=== PATIENT | male | born 1965 | race American Indian/Alaskan Native ===

== ENCOUNTER 2020-02-11 09:39 | Emergency (ER) | payer OTHER, BC ==
[~2020-02-11] VITALS: Ht 172.7 cm; Wt 90.7 kg
[~2020-02-11 09:39] MED LIST: CYCL10 PO; DIABETES MEDICINE; Epipen0.3 MG/0.3 IM; GLIM4 PO; HYDACE5325 PO; IBUP600 PO; INSU100I6 SC; INSULANPEN SC; LISI20 PO; NAPR220; Naprosyn500 MG PO; Norco 5-325 Ta1 EACH PO; OXYACE5T PO; PROM25 PO; Percocet 5-3251 EACH PO; RANI150 PO; Tylenol325 MG PO; Valium5 MG PO; Zithromax250 MG PO
[2020-02-11] MEDS ORDERED: POLTRIOPSO LEFTEYE (10:34)
[2020-02-12 05:11] LABS: HCV ANTIBODY <0.1 (0.0-0.9); HIV SCREEN 4TH GENERATION WRFX Non Reactive (Non Reactive)
== END 2020-02-11 10:31 | disposition home or self-care (01) ==
LOC: ER 09:39
PROVIDERS: Physician Assistant
DX: Z77.21 Contact with and (suspected) exposure to potentially hazardous body fluids (principal); H53.142 Visual discomfort, left eye; I10 Essential (primary) hypertension; E11.9 Type 2 diabetes mellitus without complications; F17.220 Nicotine dependence, chewing tobacco, uncomplicated; Z88.0 Allergy status to penicillin; Z88.1 Allergy status to other antibiotic agents; Z79.4 Long term (current) use of insulin; Z79.899 Other long term (current) drug therapy
CPT/HCPCS: 36415; 84460; 86317; 86803; 87389; 99283

== ENCOUNTER → 2020-04-12 | Outpatient (CLI) | payer OTHER, BC ==
[~2020-04-12] MED LIST changes: +POLTRIOPSO LEFTEYE
[2020-04-13 09:08] LABS: HIV SCREEN 4TH GENERATION WRFX Non Reactive (Non Reactive)
== END | disposition home or self-care (01) ==
LOC: LAB SHORT 13:58 → LAB EV 13:58
PROVIDERS: Physician Assistant
DX: Z20.9 Contact with and (suspected) exposure to unspecified communicable disease (principal); H04.302 Unspecified dacryocystitis of left lacrimal passage
CPT/HCPCS: 86803; 87070; 87205; 87389

== ENCOUNTER 2021-07-01 15:41 | Emergency (ER) | payer BC ==
[~2021-07-01] VITALS: Ht 175.3 cm; Wt 108.9 kg
[~2021-07-01 15:41] MED LIST changes: +PIOG15 PO
[2021-07-01] MEDS ORDERED: GLIP5 PO (15:55)
[2021-07-01 16:35] LABS: Calcium, Ionized (POC) 1.08 mmol/L (1.10-1.46); Chloride (POC) 91 mmol/L (98-108); Creatinine (POC) 1.2 mg/dL (0.8-1.3); Glucose (ISTAT POC) 183 mg/dL (70-99); Potassium (POC) 4.2 mmol/L (3.5-5.5); Sodium (POC) 128 mmol/L (135-148); Total CO2 (POC) 24 mmol/L (21-32)
[2021-07-01] MEDS ORDERED: PROM25 PO (17:21)
== END 2021-07-01 17:41 | disposition home or self-care (01) ==
LOC: ER 15:41
PROVIDERS: Physician Assistant
DX: U07.1 COVID-19 (principal); I10 Essential (primary) hypertension; E11.9 Type 2 diabetes mellitus without complications; Z88.0 Allergy status to penicillin; Z88.1 Allergy status to other antibiotic agents
CPT/HCPCS: 36415; 71045; 80047; 85014; 96374; 99284-25; A9270; J1100; J2550; J7030

== ENCOUNTER 2021-07-03 16:24 | Inpatient (IN) | payer BC ==
[~2021-07-03] VITALS: Ht 175.3 cm; Wt 108.9 kg
[~2021-07-03 16:24] MED LIST changes: +GLIP10 PO
[2021-07-03 16:39] LABS: Hemoglobin 14.7 g/dL (13.5-17.5); Mean Corpuscular HGB 31.6 pg (26.0-34.0); Mean Corpuscular HGB Conc 35.9 g/dL (31.5-36.5); Mean Corpuscular Volume 88 fL (80-100); Mean Platelet Volume 9.4 fL (9.1-12.4); Platelet Count 331 K/mm3 (150-400); RDW Standard Deviation 42.5 fL (35.1-46.3); Red Blood Cell Count 4.65 M/mm3 (4.30-5.90); White Blood Cell Count 12.74 K/mm3 (4.00-11.30)
[2021-07-03 16:58] LABS: Alanine Aminotransfer (ALT/SGP 63 U/L (12-78); Albumin, Blood 2.7 g/dL (3.4-5.0); Albumin/Globulin Ratio 0.5 (0.8-1.8); Alk Phos 25 U/L (50-136); Anion Gap 9 mmol/L (6-16); Aspartate Aminotrans (AST/SGOT 51 U/L (12-37); Bilirubin, Total 1.1 mg/dL (0.1-1.0); Blood Urea Nitrogen 23 mg/dL (8-24); Bun/Creatinine Ratio 23.7 (12.0-20.0); CO2, Blood 25 mmol/L (21-32); Calcium, Blood 8.9 mg/dL (8.5-10.1); Chloride, Blood 98 mmol/L (98-108); Creatinine, Blood 0.97 mg/dL (0.60-1.20); Globulin, Blood 5.3 g/dL (2.2-4.0); Glomerular Filtration Rate >60 (60-); Glucose, Blood 249 mg/dL (70-99); Potassium, Blood 4.3 mmol/L (3.5-5.5); Sodium, Blood 132 mmol/L (136-145)
[2021-07-03 17:02] LABS: BAND PERCENT MAN 3 % (0-8); BASOPHILS PERCENT MAN 0 % (0-2); EOSINOPHILS PERCENT MAN 0 % (0-6); LYMPHOCYTES ABSOLUTE MAN 0.38 K/mm3 (0.84-5.20); LYMPHOCYTES PERCENT MAN 3 % (21-46); MONOCYTES ABSOLUTE MAN 0.12 K/mm3 (0.16-1.47); MONOCYTES PERCENT MAN 1 % (4-13); NEUTROPHILS ABSOLUTE MAN 12.23 K/mm3 (1.96-9.15); SEG NEUTROPHILS PERCENT MAN 93 % (41-73); TOTAL CELLS COUNTED 100
--- NOTE | 2021-07-03 21:30 | NUR ---
RECEIVED REPORT FROM NATIONAL ACCOUNTS RECRUITER, ROSA. PT ARRIVED TO RM 324 VIA GURNEY ON NONREBREATHER AND THEN PLACED ON AIRVO BY RESPIRATORY CARE AT 40L WITH FI02 53%. A/O. PLEASANT AND COOPERATIVE WITH CARE. ABLE TO ANSWER APPROPRIATELY. PT ORIENTED TO CALL LT SYSTEM. CALL LIGHT WITHIN REACH.
[2021-07-04 04:57] LABS: BASOPHILS ABSOLUTE AUTO 0.04 K/mm3 (0.00-0.23); BASOPHILS PERCENT AUTO 0 % (0-2); EOSINOPHILS ABSOLUTE AUTO 0.05 K/mm3 (0.00-0.68); EOSINOPHILS PERCENT AUTO 1 % (0-6); Hematocrit 38.4 % (37.0-53.0); Hemoglobin 13.5 g/dL (13.5-17.5); Mean Corpuscular HGB 31.5 pg (26.0-34.0); Mean Corpuscular HGB Conc 35.2 g/dL (31.5-36.5); Mean Corpuscular Volume 90 fL (80-100); Mean Platelet Volume 9.5 fL (9.1-12.4); Platelet Count 299 K/mm3 (150-400); RDW Standard Deviation 42.5 fL (35.1-46.3); Red Blood Cell Count 4.29 M/mm3 (4.30-5.90); White Blood Cell Count 10.31 K/mm3 (4.00-11.30)
[2021-07-04 05:02] LABS: IMMATURE GRAN ABSOLUTE AUTO 0.39 K/mm3 (0.00-0.10); IMMATURE GRAN PERCENT AUTO 4 % (0-1); LYMPHOCYTES ABSOLUTE AUTO 0.55 K/mm3 (0.84-5.20); LYMPHOCYTES PERCENT AUTO 5 % (21-46); MONOCYTES ABSOLUTE AUTO 0.17 K/mm3 (0.16-1.47); MONOCYTES PERCENT AUTO 2 % (4-13); NEUTROPHILS ABSOLUTE AUTO 9.11 K/mm3 (1.96-9.15); NEUTROPHILS PERCENT AUTO 88 % (41-73)
[2021-07-04 05:17] LABS: Alanine Aminotransfer (ALT/SGP 55 U/L (12-78); Albumin, Blood 2.1 g/dL (3.4-5.0); Albumin/Globulin Ratio 0.4 (0.8-1.8); Alk Phos 23 U/L (50-136); Anion Gap 8 mmol/L (6-16); Aspartate Aminotrans (AST/SGOT 36 U/L (12-37); Bilirubin, Total 0.8 mg/dL (0.1-1.0); Blood Urea Nitrogen 29 mg/dL (8-24); Bun/Creatinine Ratio 30.4 (12.0-20.0); CO2, Blood 24 mmol/L (21-32); Chloride, Blood 99 mmol/L (98-108); Creatinine, Blood 0.95 mg/dL (0.60-1.20); Globulin, Blood 5.2 g/dL (2.2-4.0); Glomerular Filtration Rate >60 (60-); Glucose, Blood 340 mg/dL (70-99); Potassium, Blood 4.4 mmol/L (3.5-5.5); Sodium, Blood 131 mmol/L (136-145); Total Protein, Blood 7.3 g/dL (6.4-8.2)
--- NOTE | 2021-07-04 06:03 | NUR ---
SHIFT SUMMARY: ER ADMIT. A/O. RECEIVED FIRST DOSE OF REMDESIVIR IN ER AND DECADRON. CURRENTLY ON 40L AIRVO. SATS 93% PER CONT BIOX. NS AT 100 MLS/HR X ONE BAG. NORMALLY IS INDEPENDENT, WEAK D/T ILLNESS. LOSING SENSE OF TASTE. NO ACUTE CHANGES. WILL CONTINUE TO PROVIDE CARE.
--- NOTE | 2021-07-04 13:52 | NUR ---
I had a wonderful spiritual care visit with Chintan. We spoke of hunting and his spiritual practices. I prayed for his recovery and the strength of his body and spirit. He was very appreciative of the visit.
[2021-07-05 05:50] LABS: Anion Gap 9 mmol/L (6-16); Blood Urea Nitrogen 20 mg/dL (8-24); Bun/Creatinine Ratio 30.2 (12.0-20.0); CO2, Blood 24 mmol/L (21-32); Chloride, Blood 98 mmol/L (98-108); Creatinine, Blood 0.66 mg/dL (0.60-1.20); Glomerular Filtration Rate >60 (60-); Glucose, Blood 230 mg/dL (70-99); Potassium, Blood 4.1 mmol/L (3.5-5.5); Sodium, Blood 131 mmol/L (136-145)
--- NOTE | 2021-07-05 06:08 | NUR ---
SHIFT SUMMARY AOX4. VSS. ON AIRVO, 40L O2 & 53% FIO2. REPORTS SOB c MINIMAL ACTIVITY & TALKING @TIMES. LS DIM c FINE CRACKLES IN BASES. E/U RESP. REPORTS ACHY PAIN ALLOVER BODY, GAVE TYLENOL & PT STATED MINIMAL RELIEF. WEAK. CALL LIGHT IN REACH, ABLE TO MAKE NEEDS KNOWN.
[2021-07-05 09:53] LABS: BASOPHILS ABSOLUTE AUTO 0.05 K/mm3 (0.00-0.23); BASOPHILS PERCENT AUTO 1 % (0-2); EOSINOPHILS ABSOLUTE AUTO 0.02 K/mm3 (0.00-0.68); EOSINOPHILS PERCENT AUTO 0 % (0-6); Hemoglobin 14.2 g/dL (13.5-17.5); IMMATURE GRAN ABSOLUTE AUTO 0.33 K/mm3 (0.00-0.10); IMMATURE GRAN PERCENT AUTO 3 % (0-1); LYMPHOCYTES ABSOLUTE AUTO 0.77 K/mm3 (0.84-5.20); LYMPHOCYTES PERCENT AUTO 7 % (21-46); MONOCYTES ABSOLUTE AUTO 0.17 K/mm3 (0.16-1.47); MONOCYTES PERCENT AUTO 2 % (4-13); Mean Corpuscular HGB Conc 35.5 g/dL (31.5-36.5); Mean Corpuscular Volume 87 fL (80-100); Mean Platelet Volume 9.5 fL (9.1-12.4); NEUTROPHILS ABSOLUTE AUTO 9.53 K/mm3 (1.96-9.15); NEUTROPHILS PERCENT AUTO 88 % (41-73); Platelet Count 416 K/mm3 (150-400); RDW Coefficient Variation 12.6 % (11.7-14.2); Red Blood Cell Count 4.58 M/mm3 (4.30-5.90); White Blood Cell Count 10.87 K/mm3 (4.00-11.30)
--- NOTE | 2021-07-05 10:23 | NUR ---
PATIENT TRANSFERRING TO PCU, REPORT CALLED TO JS PEREZ.
--- NOTE | 2021-07-05 18:14 | NUR ---
SHIFT SUMMARY PT TRANSFER TO PCU AT APPROX 1040. PT ORIENTED TO ROOM AND CALL LIGHT. PT A&Ox4; CALM AND COOPERATIVE WITH CARE. PT RESTING IN BED. USING URINAL IN BED. ENCOURAGED PT TO PRONE, PT STATES HE CANT SLEEP ON STOMACH, ENCOURGED PT TO SLEEP ON SIDE, PT STATES HE WILL TRY. PT DENIES PAIN, CHEST PAIN, NAUSEA AND DIZZINESS. PT SOB WITH EXERTION, SPO2 >90% ON AIRVO, UPON TRANSFER ON 60L AND 83% FIO2, TITRATED TO 60L AND 69% FIO2. PT RECEIVING IV STEROIDS AND REMDESIVIR. ELEVATED BP NOTED. OTHER VSS. NO OTHER ACUTE CHANGES NOTED. WILL CONTINUE TO MONITOR UNTIL REPORT GIVEN TO ONCOMING RN.
[2021-07-06 04:19] LABS: BASOPHILS ABSOLUTE AUTO 0.03 K/mm3 (0.00-0.23); BASOPHILS PERCENT AUTO 0 % (0-2); EOSINOPHILS PERCENT AUTO 0 % (0-6); Hematocrit 40.2 % (37.0-53.0); Hemoglobin 14.1 g/dL (13.5-17.5); IMMATURE GRAN ABSOLUTE AUTO 0.26 K/mm3 (0.00-0.10); IMMATURE GRAN PERCENT AUTO 3 % (0-1); LYMPHOCYTES ABSOLUTE AUTO 0.49 K/mm3 (0.84-5.20); LYMPHOCYTES PERCENT AUTO 5 % (21-46); MONOCYTES ABSOLUTE AUTO 0.28 K/mm3 (0.16-1.47); MONOCYTES PERCENT AUTO 3 % (4-13); Mean Corpuscular HGB Conc 35.1 g/dL (31.5-36.5); Mean Corpuscular Volume 88 fL (80-100); NEUTROPHILS ABSOLUTE AUTO 8.53 K/mm3 (1.96-9.15); NEUTROPHILS PERCENT AUTO 89 % (41-73); Platelet Count 370 K/mm3 (150-400); RDW Coefficient Variation 12.5 % (11.7-14.2); RDW Standard Deviation 40.9 fL (35.1-46.3); Red Blood Cell Count 4.55 M/mm3 (4.30-5.90); White Blood Cell Count 9.59 K/mm3 (4.00-11.30)
[2021-07-06 04:31] LABS: International Normalized Ratio 1.06; Prothrombin Time Results 11.4 Sec (9.7-11.5)
--- NOTE | 2021-07-06 04:40 | NUR ---
SUMMARY PT O2 REQUIREMENTS HAVE REMAINED THE T/O SHIFT. PT SPO2 >92 T/O SHIFT. PT C/O HIP AND BACK PAIN. PROVIDER CALLED AND PT GIVEN ORDERED NORCO W/ RELIEF. PT HAS BEEN ABLE TO SLEEP WELL THIS SHIFT. PT HAD BEEN VOIDING WELL T/O SHIFT. PT TAKING IN PO FLUIDS FREQUENTLY. PT REPORTS HIS TASTE HAS RETURNED. PT STATES HE DOES NOT WANT TO PRONE AND THAT HE WILL TRY ON HIS SIDE. PT CURRENTLY SLEEPING AND IN NO DISTRESS. CALL LIGHT IN REACH.
[2021-07-06 04:44] LABS: Alanine Aminotransfer (ALT/SGP 48 U/L (12-78); Albumin, Blood 2.3 g/dL (3.4-5.0); Albumin/Globulin Ratio 0.5 (0.8-1.8); Alk Phos 25 U/L (50-136); Anion Gap 8 mmol/L (6-16); Aspartate Aminotrans (AST/SGOT 26 U/L (12-37); Bilirubin, Total 0.7 mg/dL (0.1-1.0); Blood Urea Nitrogen 28 mg/dL (8-24); Bun/Creatinine Ratio 35.1 (12.0-20.0); CO2, Blood 26 mmol/L (21-32); Calcium, Blood 8.4 mg/dL (8.5-10.1); Chloride, Blood 96 mmol/L (98-108); Glomerular Filtration Rate >60 (60-); Glucose, Blood 299 mg/dL (70-99); Magnesium, Blood 2.3 mg/dL (1.6-2.4); Sodium, Blood 130 mmol/L (136-145); Total Protein, Blood 7.3 g/dL (6.4-8.2); Troponin I <0.015 ng/mL (0.000-0.040)
--- NOTE | 2021-07-06 13:57 | NUR ---
Spiritual Care visit provided. I provided companionship, listened empathetically and prayed with the patient. He was very thankful for the visit.
--- NOTE | 2021-07-06 18:11 | NUR ---
PT HAS BEEN RESTING WELL IN BED T/O THE DAY, PT HAS BEEN SUPINE FOR MOST OF THE DAY WITH GOOD SPO2 READINGS. VSS. DENIES SOB AND CP WHILE AT REST, WITH ACTIVITY PT HAS SOME DYSPNEA. UNABLE TO PRONE FOR LONG BECUASE OF BACK PAIN. PT DID HAVE A LOOSE STOOL TODAY WHICH HE WAS TREATED WITH IMMODIUM FOR. PT HAS REQUIRED INSULIN COVERAGE T/O THE DAY FOR BLOOD SUGARS IN THE 300s. OTHERWISE NO ACUTE CAHNGES THIS SHIFT
[2021-07-07 04:07] LABS: BASOPHILS ABSOLUTE AUTO 0.03 K/mm3 (0.00-0.23); BASOPHILS PERCENT AUTO 0 % (0-2); EOSINOPHILS PERCENT AUTO 0 % (0-6); Hematocrit 38.1 % (37.0-53.0); Hemoglobin 13.5 g/dL (13.5-17.5); IMMATURE GRAN ABSOLUTE AUTO 0.25 K/mm3 (0.00-0.10); IMMATURE GRAN PERCENT AUTO 3 % (0-1); LYMPHOCYTES PERCENT AUTO 5 % (21-46); MONOCYTES PERCENT AUTO 3 % (4-13); Mean Corpuscular HGB Conc 35.4 g/dL (31.5-36.5); Mean Corpuscular Volume 88 fL (80-100); Mean Platelet Volume 9.5 fL (9.1-12.4); NEUTROPHILS ABSOLUTE AUTO 8.78 K/mm3 (1.96-9.15); NEUTROPHILS PERCENT AUTO 89 % (41-73); Platelet Count 420 K/mm3 (150-400); RDW Coefficient Variation 12.3 % (11.7-14.2); RDW Standard Deviation 39.7 fL (35.1-46.3); Red Blood Cell Count 4.35 M/mm3 (4.30-5.90); White Blood Cell Count 9.86 K/mm3 (4.00-11.30)
[2021-07-07 04:22] LABS: D-Dimer, Quantitative 1.23 mg/L FEU (0.00-0.52); International Normalized Ratio 1.08; Prothrombin Time Results 11.6 Sec (9.7-11.5)
[2021-07-07 04:41] LABS: Alanine Aminotransfer (ALT/SGP 43 U/L (12-78); Albumin, Blood 2.1 g/dL (3.4-5.0); Albumin/Globulin Ratio 0.4 (0.8-1.8); Alk Phos 22 U/L (50-136); Anion Gap 8 mmol/L (6-16); Aspartate Aminotrans (AST/SGOT 27 U/L (12-37); Bilirubin, Total 0.7 mg/dL (0.1-1.0); Blood Urea Nitrogen 31 mg/dL (8-24); CO2, Blood 26 mmol/L (21-32); Calcium, Blood 8.4 mg/dL (8.5-10.1); Chloride, Blood 95 mmol/L (98-108); Creatinine, Blood 0.65 mg/dL (0.60-1.20); Globulin, Blood 4.8 g/dL (2.2-4.0); Glomerular Filtration Rate >60 (60-); Glucose, Blood 308 mg/dL (70-99); Magnesium, Blood 2.2 mg/dL (1.6-2.4); Potassium, Blood 4.9 mmol/L (3.5-5.5); Sodium, Blood 129 mmol/L (136-145); Total Protein, Blood 6.9 g/dL (6.4-8.2); Troponin I <0.015 ng/mL (0.000-0.040)
--- NOTE | 2021-07-07 06:29 | NUR ---
SHIFT SUMMARY PATIENT FOUND TO BE A&OX4 WITH SOME GEN WEAKNESS. NSR ON THE 70'S. ON ARIVO 60L, 80% SATING MID 90'S ALL SHIFT. KEEPING EXERTION TO A MIN. DOES NOT TOLERATE PRONING IT MAKES HIM VERY NAUSEAOUS SO ENCOURAGING SIDE TO SIDE LAYING. VOIDING WELL PER URINAL. TOLERATING ADA DIET. SOME NAUSEA SO TAKING ORAL INTAKE SLOW AND PRN ZOFRAN GIVEN. NO BM THIS SHIFT. NO PAIN OR DISTRESS NOTED UPON ASSESSMENT. UP WITH ONE IN ROOM BUT BEDREST UNTIL OXYGEN DEMANDS IMPROVE. NO ACUTE CONCERNS AT THIS TIME. WILL CONTINUE TO MONITOR UNTIL REPORT GIVEN TO DAYSHIFT RN.
--- NOTE | 2021-07-07 13:58 | NUR ---
PT ABLE TO SIT UP IN CHAIR FROM BREAKFAST UNTIL AFTER LUNCH. PT ABLE TO STAND AND PIVOT WITH SBA FROM BED TO CHAIR AND BACK. PT VERBALIZES UNDERSTANDING OF THE IMPORTANCE OF CHANGING POSITIONS EVERY COUPLE OF HOURS. CALL LIGHT IN REACH.
[2021-07-08 04:48] LABS: BASOPHILS ABSOLUTE AUTO 0.02 K/mm3 (0.00-0.23); BASOPHILS PERCENT AUTO 0 % (0-2); EOSINOPHILS PERCENT AUTO 0 % (0-6); Hematocrit 37.4 % (37.0-53.0); Hemoglobin 13.2 g/dL (13.5-17.5); IMMATURE GRAN ABSOLUTE AUTO 0.26 K/mm3 (0.00-0.10); IMMATURE GRAN PERCENT AUTO 3 % (0-1); LYMPHOCYTES ABSOLUTE AUTO 0.39 K/mm3 (0.84-5.20); LYMPHOCYTES PERCENT AUTO 4 % (21-46); MONOCYTES ABSOLUTE AUTO 0.26 K/mm3 (0.16-1.47); MONOCYTES PERCENT AUTO 3 % (4-13); Mean Corpuscular HGB 30.8 pg (26.0-34.0); Mean Corpuscular HGB Conc 35.3 g/dL (31.5-36.5); Mean Corpuscular Volume 87 fL (80-100); Mean Platelet Volume 10.2 fL (9.1-12.4); NEUTROPHILS PERCENT AUTO 91 % (41-73); Platelet Count 418 K/mm3 (150-400); RDW Coefficient Variation 12.4 % (11.7-14.2); RDW Standard Deviation 39.8 fL (35.1-46.3); Red Blood Cell Count 4.29 M/mm3 (4.30-5.90); White Blood Cell Count 10.03 K/mm3 (4.00-11.30)
--- NOTE | 2021-07-08 05:03 | NUR ---
SHIFT SUMMARY NO ACUTE CHANGES. PT A&OX4. PLEASANT. SP02>92% ON 60L HUMIDIFIED HIGH ARM[place] NC, 85%. PT HAD MOMENTS OF APNEA DURING SLEEP, WOULD DESAT TO 83%, THEN RECOVER QUICKLY. TELEMETRY READS NSR, HR 70'S. PT USED URINAL TO VOID THIS SHIFT. NO BM. PT DENIED PAIN. CALL LIGHT IN REACH. WILL GIVE REPORT TO ONCOMING NURSE.
[2021-07-08 05:16] LABS: Alanine Aminotransfer (ALT/SGP 48 U/L (12-78); Albumin, Blood 2.1 g/dL (3.4-5.0); Albumin/Globulin Ratio 0.5 (0.8-1.8); Alk Phos 32 U/L (50-136); Anion Gap 6 mmol/L (6-16); Aspartate Aminotrans (AST/SGOT 45 U/L (12-37); Bilirubin, Total 0.7 mg/dL (0.1-1.0); Blood Urea Nitrogen 33 mg/dL (8-24); Bun/Creatinine Ratio 51.7 (12.0-20.0); CO2, Blood 28 mmol/L (21-32); Calcium, Blood 8.3 mg/dL (8.5-10.1); Chloride, Blood 97 mmol/L (98-108); Creatinine, Blood 0.64 mg/dL (0.60-1.20); Globulin, Blood 4.5 g/dL (2.2-4.0); Glomerular Filtration Rate >60 (60-); Glucose, Blood 318 mg/dL (70-99); Magnesium, Blood 2.3 mg/dL (1.6-2.4); Potassium, Blood 5.2 mmol/L (3.5-5.5); Sodium, Blood 131 mmol/L (136-145); Total Protein, Blood 6.6 g/dL (6.4-8.2)
[2021-07-08 05:18] LABS: International Normalized Ratio 1.06; Prothrombin Time Results 11.4 Sec (9.7-11.5)
--- NOTE | 2021-07-08 11:55 | NUR ---
Patient is lying in bed and alert. Patient tells me about the events that led to his hospitalization and his progress since being admitted. He tells me that his motivation to be well is hunting the [place] that he has been watching. He tells me his mix of believes and Congregational and the inner peace he has in the midst of the medical issues. I provide therapeutic listening, companionship and prayer. Patient responds well and shows signs of an elevated mood. I will continue to remain available to patient and family.
--- NOTE | 2021-07-08 13:30 | NUR ---
HR TACHY/PHYSICIAN NOTIFIED PHYSICIAN NOTIFIED PT HAD ONE MIN RUN OF VTACH AND IN AND OUT OF SINUS TACH AND AFIB. ORDERS FOR PT TO HAVE 5MG IV METOPROLOL PUSH Q 15 UNTIL HR UNDER 100. PT RN NOTIFIED.
--- NOTE | 2021-07-08 18:49 | NUR ---
SHIFT SUMMARY: PT CONTINUES A&OX4, COOPERATIVE WITH CARE. APPROX 1330, PT WITH APPROX 1 MIN RUN OF VTACH THEN CONVERTED TO AFIB W/RVR. DR VILLALOBOSTRATE NOTIFIED. HR SUSTAINING 130s-160s, LOPRESSOR IVPs GIVEN IN ATTEMPT TO DECREASE HR, EVENTUALLY CARDIZEM GTT INITIATED AT 15 MG/HR, HR APPROX 120s-130s AT THIS TIME, PT CONTINUES ASYMPTOMATIC. NO ACUTE CHANGES TO PT RESPIRATORY STATUS. PT USING URINAL IN BED, USING CALL LIGHT APPROPRIATELY, REMDESIVIR INFUSION COMPLETE. WILL CONTINUE TO MONITOR AND TREAT ACCORDINGLY UNTIL CHANGE OF SHIFT.
--- NOTE | 2021-07-08 22:19 | NUR ---
ASSUMED CARE OF PATIENT AT APPROXIMATELY 1910 FROM MINGO Yuen RN. PATIENT ALERT AND ORIENTED X4; SBA TO CHAIR OR WHEN UP PER REPORT. PATIENT REPORTS CHRONIC PAIN IN HIP THAT IS CHRONIC BUT REFUSES INTERVENTIONS; REPORTS PAIN MEDICATION "KNOCKS HIM OUT". PATIENT VERBALIZED HE IS SUPPOSE TO BE GOING HUNTING TOMORROW AND IT IS HIS BIRTHDAY AND HOPED TO BE OUT. PATIENT DENIES NUMBESS, TINGLING, DIZZINESS OR NAUSEA. PATIENT REPORTS HE IS UNABLE TO PRONE BECAUSE OF HIS CULTURE; BUT ABLE TO LAY ON HIS SIDE IF NEEDED. AFIB ON TELE WITH AN AVERAGE OF 120'S; AIRVO AT 60L 90% FIO2; CARDIZEM AT 15ML/ HR. PG ROD.
--- NOTE | 2021-07-08 22:54 | NUR ---
HEART RATE 150-170S WHILE USING URINAL IN BED
--- NOTE | 2021-07-08 23:00 | NUR ---
CARDIZEM TITRATED DOWN TO 10ML/HR PER ORDER
--- NOTE | 2021-07-08 23:22 | NUR ---
CARDIZEM TITIRATED DOWN PER ORDER TO 5ML/HR FOR HEART RATE AVERAGING 106
[2021-07-09 08:20] LABS: BASOPHILS ABSOLUTE AUTO 0.03 K/mm3 (0.00-0.23); BASOPHILS PERCENT AUTO 0 % (0-2); EOSINOPHILS PERCENT AUTO 0 % (0-6); Hematocrit 40.5 % (37.0-53.0); Hemoglobin 14.3 g/dL (13.5-17.5); IMMATURE GRAN ABSOLUTE AUTO 0.33 K/mm3 (0.00-0.10); IMMATURE GRAN PERCENT AUTO 3 % (0-1); LYMPHOCYTES ABSOLUTE AUTO 0.36 K/mm3 (0.84-5.20); LYMPHOCYTES PERCENT AUTO 3 % (21-46); MONOCYTES ABSOLUTE AUTO 0.25 K/mm3 (0.16-1.47); MONOCYTES PERCENT AUTO 2 % (4-13); Mean Corpuscular HGB 31.2 pg (26.0-34.0); Mean Corpuscular HGB Conc 35.3 g/dL (31.5-36.5); Mean Corpuscular Volume 88 fL (80-100); Mean Platelet Volume 10.3 fL (9.1-12.4); NEUTROPHILS ABSOLUTE AUTO 12.34 K/mm3 (1.96-9.15); NEUTROPHILS PERCENT AUTO 93 % (41-73); Platelet Count 470 K/mm3 (150-400); RDW Coefficient Variation 12.4 % (11.7-14.2); RDW Standard Deviation 39.7 fL (35.1-46.3); Red Blood Cell Count 4.58 M/mm3 (4.30-5.90); White Blood Cell Count 13.31 K/mm3 (4.00-11.30)
[2021-07-09 08:36] LABS: Anion Gap 6 mmol/L (6-16); Blood Urea Nitrogen 29 mg/dL (8-24); Bun/Creatinine Ratio 42.3 (12.0-20.0); CO2, Blood 28 mmol/L (21-32); Calcium, Blood 8.3 mg/dL (8.5-10.1); Chloride, Blood 99 mmol/L (98-108); Creatinine, Blood 0.69 mg/dL (0.60-1.20); Glomerular Filtration Rate >60 (60-); Glucose, Blood 303 mg/dL (70-99); Potassium, Blood 4.8 mmol/L (3.5-5.5); Sodium, Blood 133 mmol/L (136-145)
--- NOTE | 2021-07-09 10:43 | NUR ---
NOTIFIED BY Xanic THAT PT WAS IN ACCELERATED JUNCTIONAL RHYTHM. CALLED AND WAS GIVEN TELEPHONE ORDER TO GIVE METOPROLOL TARTRATED 50MG NOW.
--- NOTE | 2021-07-09 18:41 | NUR ---
PT A&OX4 ABLE TO MAKE NEEDS KNOWN. ON AIRVO 55L AT 80% O2 SATURATIONS IN MID 90'S DURING SHIFT. PT STARTED SHIFT IN NORMAL SINUS BUT CONVERTED TO JUNCTIONAL. NOTIFED DR, METOPROLOL PO ORDERED. AFTERNOON CBG WAS 366, NEW INSULIN ORDERS ENTERED IN TO [facility] BY . PT UP IN CHAIR FOR MOST OF SHIFT, TRANSFERED WITH ONE PERSON STANDBY. PT TOLERATED MOVEMENT OKAY, SATS CAME BACK UP AFTER A FEW MINUTES. PT CURENLTY RESTING IN BED WILL CONTINUE TO MONITOR UNTIL SHIFT CHANGE.
--- NOTE | 2021-07-09 21:32 | NUR ---
BERNADETTE 387; CALLED DR. AVINA; ORDERS FOR ADDITIONAL 4 UNITS OF HUMALOG TONIGHT.
--- NOTE | 2021-07-09 22:35 | NUR ---
ASSUMED CARE OF PATIENT AT APPROXIMATELY 1910 FROM MINGO Yuen RN. PATIENT ALERT AND ORIENTED X4; SBA TO CHAIR OR WHEN UP PER REPORT. PATIENT DENIES PAIN, NUMBESS, TINGLING, DIZZINESS OR NAUSEA. NSR ON TELE; OXYGEN SATURATION ABOVE 90% ON AIRVO AT 55L 73% FIO2. USES URINAL IN BED; REPORTS DIARRHEA BUT NOT SEEN; REQUESTED IMMODIUM. CGB HIGH; SEE PREVIOUS NOTE.
[2021-07-10 06:35] LABS: BASOPHILS ABSOLUTE AUTO 0.04 K/mm3 (0.00-0.23); BASOPHILS PERCENT AUTO 0 % (0-2); EOSINOPHILS PERCENT AUTO 0 % (0-6); Hematocrit 36.6 % (37.0-53.0); Hemoglobin 13.5 g/dL (13.5-17.5); IMMATURE GRAN ABSOLUTE AUTO 0.84 K/mm3 (0.00-0.10); IMMATURE GRAN PERCENT AUTO 5 % (0-1); LYMPHOCYTES ABSOLUTE AUTO 0.44 K/mm3 (0.84-5.20); LYMPHOCYTES PERCENT AUTO 3 % (21-46); MONOCYTES ABSOLUTE AUTO 0.43 K/mm3 (0.16-1.47); MONOCYTES PERCENT AUTO 3 % (4-13); Mean Corpuscular HGB 32.1 pg (26.0-34.0); Mean Corpuscular HGB Conc 36.9 g/dL (31.5-36.5); Mean Corpuscular Volume 87 fL (80-100); Mean Platelet Volume 9.5 fL (9.1-12.4); NEUTROPHILS ABSOLUTE AUTO 14.46 K/mm3 (1.96-9.15); NEUTROPHILS PERCENT AUTO 89 % (41-73); Platelet Count 431 K/mm3 (150-400); RDW Coefficient Variation 12.3 % (11.7-14.2); RDW Standard Deviation 39.4 fL (35.1-46.3); White Blood Cell Count 16.21 K/mm3 (4.00-11.30)
--- NOTE | 2021-07-10 06:51 | NUR ---
PATIENT SLEPT ABOUT FOUR HOURS LAST NIGHT. VSS. NO OTHER ACUTE CHANGES TO REPORT.
[2021-07-10 06:53] LABS: Alanine Aminotransfer (ALT/SGP 51 U/L (12-78); Albumin, Blood 2.2 g/dL (3.4-5.0); Albumin/Globulin Ratio 0.5 (0.8-1.8); Alk Phos 33 U/L (50-136); Anion Gap 5 mmol/L (6-16); Aspartate Aminotrans (AST/SGOT 27 U/L (12-37); Bilirubin, Total 0.6 mg/dL (0.1-1.0); Blood Urea Nitrogen 30 mg/dL (8-24); Bun/Creatinine Ratio 47.5 (12.0-20.0); CO2, Blood 27 mmol/L (21-32); Calcium, Blood 7.9 mg/dL (8.5-10.1); Chloride, Blood 101 mmol/L (98-108); Creatinine, Blood 0.63 mg/dL (0.60-1.20); Globulin, Blood 4.2 g/dL (2.2-4.0); Glomerular Filtration Rate >60 (60-); Glucose, Blood 293 mg/dL (70-99); Magnesium, Blood 2.2 mg/dL (1.6-2.4); Potassium, Blood 4.7 mmol/L (3.5-5.5); Sodium, Blood 133 mmol/L (136-145); Total Protein, Blood 6.4 g/dL (6.4-8.2)
[2021-07-10 06:59] LABS: International Normalized Ratio 1.03; Prothrombin Time Results 11.1 Sec (9.7-11.5)
--- NOTE | 2021-07-10 17:55 | NUR ---
ELEVATED CBG: NOTIFIED DR. CASTELLANO OF PATIENT'S CBG. NEW ORDERS RECEIVED.
--- NOTE | 2021-07-10 19:21 | NUR ---
END OF SHIFT SUMMARY: PATIENT DENIED PAIN THROUGHOUT THE SHIFT. PATIENT CONTINUES TO REQUIRE AIRVO, HOWEVER, SETTINGS WERE TURNED DOWN TO 50L AT 53% BY THE END OF THE DAY. PATIENT REPORTS FEELING BETTER AND IMPROVED BREATHING STATUS. PATIENT BREATHING CALMLY AND EVENLY IN THE BED. PATIENT UP TO THE CHAIR DURING THE AFTERNOON. WHEN TRANSFERING BACK TO THE BED PATIENT REPORTED THAT IT FELT THE EASIEST IT HAS SINCE HOSPITALIZED WITH COVID. PATIENT IS ENCOURAGED WITH HIS IMPROVEMENT.
--- NOTE | 2021-07-10 21:20 | NUR ---
ASSUMED CARE OF PATIENT AT APPROXIMATELY 1905 FROM DEAN Bhatti RN. PATIENT ALERT AND ORIENTED X4; SBA TO CHAIR OR WHEN UP PER REPORT. PATIENT DENIES PAIN, NUMBESS, TINGLING, DIZZINESS OR NAUSEA. NSR ON TELE; OXYGEN SATURATION ABOVE 90% ON AIRVO AT 55L 73% FIO2. USES URINAL IN BED; CGB HIGH; CALLED DR. ROQUE AT 2000; NO NEW ORDERS; RECHECK IN AN HOUR AND CALL BACK IF OVER 350.
--- NOTE | 2021-07-10 21:55 | NUR ---
CALLED DR. ROQUE ABOUT CBG OF 361 AFTER SCHEDULED PM MEDICATIONS; ORDERS TO DOSE WITH 6 UNITS OF HUMALOG NOW.
[2021-07-11 05:29] LABS: BASOPHILS ABSOLUTE AUTO 0.05 K/mm3 (0.00-0.23); BASOPHILS PERCENT AUTO 0 % (0-2); EOSINOPHILS ABSOLUTE AUTO 0.07 K/mm3 (0.00-0.68); EOSINOPHILS PERCENT AUTO 0 % (0-6); Hematocrit 38.2 % (37.0-53.0); Hemoglobin 13.8 g/dL (13.5-17.5); IMMATURE GRAN ABSOLUTE AUTO 0.75 K/mm3 (0.00-0.10); IMMATURE GRAN PERCENT AUTO 4 % (0-1); LYMPHOCYTES ABSOLUTE AUTO 1.06 K/mm3 (0.84-5.20); LYMPHOCYTES PERCENT AUTO 6 % (21-46); MONOCYTES ABSOLUTE AUTO 0.34 K/mm3 (0.16-1.47); MONOCYTES PERCENT AUTO 2 % (4-13); Mean Corpuscular HGB 31.7 pg (26.0-34.0); Mean Corpuscular HGB Conc 36.1 g/dL (31.5-36.5); Mean Corpuscular Volume 88 fL (80-100); Mean Platelet Volume 9.4 fL (9.1-12.4); NEUTROPHILS ABSOLUTE AUTO 14.62 K/mm3 (1.96-9.15); NEUTROPHILS PERCENT AUTO 87 % (41-73); Platelet Count 450 K/mm3 (150-400); RDW Coefficient Variation 12.4 % (11.7-14.2); RDW Standard Deviation 40.1 fL (35.1-46.3); Red Blood Cell Count 4.35 M/mm3 (4.30-5.90); White Blood Cell Count 16.89 K/mm3 (4.00-11.30)
[2021-07-11 05:45] LABS: Albumin, Blood 2.2 g/dL (3.4-5.0); Anion Gap 4 mmol/L (6-16); Blood Urea Nitrogen 29 mg/dL (8-24); Bun/Creatinine Ratio 41.9 (12.0-20.0); CO2, Blood 29 mmol/L (21-32); Calcium, Blood 7.9 mg/dL (8.5-10.1); Chloride, Blood 101 mmol/L (98-108); Creatinine, Blood 0.69 mg/dL (0.60-1.20); Glomerular Filtration Rate >60 (60-); Glucose, Blood 127 mg/dL (70-99); Phosphorus, Blood 3.9 mg/dL (2.5-4.9); Potassium, Blood 4.1 mmol/L (3.5-5.5); Sodium, Blood 134 mmol/L (136-145)
--- NOTE | 2021-07-11 06:43 | NUR ---
NO ACUTE CHANGES; PATIENT SLEPT ABOUT SIX HOURS. VSS
--- NOTE | 2021-07-11 15:27 | NUR ---
Patient lying in bed and resting. Patient is disappointed by his slow recovery and how hard any movement forward is for him. 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 I also provide companionship, therapeutic listening and prayer. Patient responds well and shows signs of being uplifted and encouraged. I will continue to remain available to patient and family.
--- NOTE | 2021-07-11 17:44 | NUR ---
SHIFT SUMMARY PT ALERT AND ORIENTED. O2 SATS HAVE REMAINED ABOVE 90% AT REST ON 50L AND 70% FIO2. WITH MINIMAL ACTIVITY PT DESATURATES TO LOW 80'S AND TAKES ABOUT A MINUTE TO RECOVER. PT DISCOURAGED WITH HIS SLOW IMPROVEMENT AND INACTIVITY. CHAPLAN IN TO VISIT [facility] PT. HR HAS BEEN NSR. BP STABLE. PT DENIES ANY PAIN. PT REPORTS FEELING FATIGUED THIS SHIFT. ABLE TO VOID USING THE URINAL AT BEDSIDE. WILL CONTINUE TO MONITOR AND REPORT TO ONCOMING RN .
--- NOTE | 2021-07-11 20:35 | NUR ---
PT IS ALERT AND ORIENTED, LAYING FLAT IN BED. PT DENIES HEADACHE, CHEST PAIN, NAUSEA, OR N/T. PT REPORTS ONLY DISCOMFORT HE IS "VERY TIRED." PT REPORTS SOB WITH ACTIVITY, BUT DENIES SOB WHILE RESTING IN BED. PT USING THE URINAL AT BEDSIDE, DENIES URINARY DISCOMFORT. LEFT UA POWER GLIDE FLUSHED WITHOUT DIFFICULTY. CALL LIGHT WITHIN REACH. BED IN LOW POSITION. FLUIDS AT BEDSIDE.
[2021-07-12 05:13] LABS: BASOPHILS ABSOLUTE AUTO 0.05 K/mm3 (0.00-0.23); BASOPHILS PERCENT AUTO 0 % (0-2); EOSINOPHILS ABSOLUTE AUTO 0.24 K/mm3 (0.00-0.68); EOSINOPHILS PERCENT AUTO 2 % (0-6); Hematocrit 37.7 % (37.0-53.0); Hemoglobin 13.4 g/dL (13.5-17.5); IMMATURE GRAN ABSOLUTE AUTO 0.69 K/mm3 (0.00-0.10); IMMATURE GRAN PERCENT AUTO 4 % (0-1); LYMPHOCYTES ABSOLUTE AUTO 0.79 K/mm3 (0.84-5.20); LYMPHOCYTES PERCENT AUTO 5 % (21-46); MONOCYTES PERCENT AUTO 2 % (4-13); Mean Corpuscular HGB 31.5 pg (26.0-34.0); Mean Corpuscular HGB Conc 35.5 g/dL (31.5-36.5); Mean Corpuscular Volume 89 fL (80-100); Mean Platelet Volume 9.7 fL (9.1-12.4); NEUTROPHILS PERCENT AUTO 87 % (41-73); Platelet Count 353 K/mm3 (150-400); RDW Coefficient Variation 12.6 % (11.7-14.2); Red Blood Cell Count 4.26 M/mm3 (4.30-5.90); White Blood Cell Count 15.77 K/mm3 (4.00-11.30)
[2021-07-12 05:45] LABS: Albumin, Blood 1.9 g/dL (3.4-5.0); Anion Gap 7 mmol/L (6-16); Blood Urea Nitrogen 24 mg/dL (8-24); Bun/Creatinine Ratio 33.9 (12.0-20.0); CO2, Blood 28 mmol/L (21-32); Calcium, Blood 8.1 mg/dL (8.5-10.1); Chloride, Blood 97 mmol/L (98-108); Creatinine, Blood 0.71 mg/dL (0.60-1.20); Glomerular Filtration Rate >60 (60-); Glucose, Blood 119 mg/dL (70-99); Phosphorus, Blood 4.2 mg/dL (2.5-4.9); Sodium, Blood 132 mmol/L (136-145)
--- NOTE | 2021-07-12 06:10 | NUR ---
SHIFT SUMMARY - NO ACUTE CHANGES TONIGHT. PT'S ONLY COMPLAINT IS FEELING TIRED, AND HAVING LACK OF SLEEP. PT'S AIRVO SETTINGS 50L, 80% FIO2 - SATS WNL THROUGHOUT THE NIGHT, EXCEPT SATS DROPPED TO MID 80'S TONIGHT AT APPX 0220, AND FIO2 WAS ADJUSTED FROM 70% TO 80% FIO2. SATS DROPPED TO MID 80'S WITH URINAL USE X1, SATS RECOVERED WITHIN 2 MINUTES. PT SLEPT FOR APPX 2-3 HOURS TONIGHT. CALL LIGHT WITHIN REACH. BED IN LOW POSITION.
--- NOTE | 2021-07-12 18:33 | NUR ---
SHIFT SUMMARY PT ALERT AND ORIENTED. PT ON AIRVO AT 50L AND 75% FIO2 AT THIS TIME WITH SATS >90%. PT DESATURATES WITH MINIMAL ACTIVITY AND TAKES MINUTES TO RECOVER. BP STABLE. HR NSR. PT DENIES ANY PAIN. PT ABLE TO URINATE USING THE URINAL AT BEDSIDE. PT ABLE TO DANGLE AT SIDE OF BED FOR MEALS. PT ENCOURAGED TO EITHER BE SITTING UP IN RECLINER OR LAY OVER ON HIS SIDE TO IMPROVE OXYGENATION. WILL CONTINUE TO MONITOR AND REPORT TO ONCOMING RN.
--- NOTE | 2021-07-13 03:20 | NUR ---
ROCKY IS DOING WELL SO FAR, HE IS IN HIS ROOM, IN HIS OWN PJ'S. HE IS ON AIRVO 70%/50L, GETS SHORT OF BREATH WITH ANY LARGE MOVEMENT, TAKEN DOWN TO CT AROUND 2200 FOR SCAN. HE TOLERATED THE TRANSPORT WELL, HE WAS ON NASAL CANNULA AND NRB, HE MAINTAINED SATS ~94%, HE TRAVELED VIA WHEELCHAIR. HE HAD SOME PEPSI AND USES HIS URINAL APPROPRIATELY. HIS RHYTHM VIA TELEMETRY IS ACCELERATED JUNCTIONAL RATE 70'S, HIS HS CBG WAS 352 AND THERE IS NO COVERAGE ORDERED AT THIS TIME. HE DID CALL AROUND 0100 FOR WARM BLANKETS, OTHERWISE HE IS SLEEPING. MAINTAINING HIS SATS 92-95%
[2021-07-13 05:00] LABS: BASOPHILS ABSOLUTE AUTO 0.05 K/mm3 (0.00-0.23); BASOPHILS PERCENT AUTO 0 % (0-2); EOSINOPHILS ABSOLUTE AUTO 0.19 K/mm3 (0.00-0.68); EOSINOPHILS PERCENT AUTO 1 % (0-6); Hematocrit 36.9 % (37.0-53.0); IMMATURE GRAN ABSOLUTE AUTO 0.68 K/mm3 (0.00-0.10); IMMATURE GRAN PERCENT AUTO 4 % (0-1); LYMPHOCYTES ABSOLUTE AUTO 0.73 K/mm3 (0.84-5.20); LYMPHOCYTES PERCENT AUTO 5 % (21-46); MONOCYTES ABSOLUTE AUTO 0.44 K/mm3 (0.16-1.47); MONOCYTES PERCENT AUTO 3 % (4-13); Mean Corpuscular HGB Conc 35.2 g/dL (31.5-36.5); Mean Corpuscular Volume 88 fL (80-100); Mean Platelet Volume 9.6 fL (9.1-12.4); NEUTROPHILS ABSOLUTE AUTO 13.59 K/mm3 (1.96-9.15); NEUTROPHILS PERCENT AUTO 87 % (41-73); Platelet Count 365 K/mm3 (150-400); RDW Coefficient Variation 12.3 % (11.7-14.2); RDW Standard Deviation 39.6 fL (35.1-46.3); White Blood Cell Count 15.68 K/mm3 (4.00-11.30)
[2021-07-13 05:21] LABS: Albumin, Blood 1.9 g/dL (3.4-5.0); Anion Gap 5 mmol/L (6-16); Blood Urea Nitrogen 18 mg/dL (8-24); Bun/Creatinine Ratio 27.2 (12.0-20.0); CO2, Blood 29 mmol/L (21-32); Calcium, Blood 8.2 mg/dL (8.5-10.1); Chloride, Blood 98 mmol/L (98-108); Creatinine, Blood 0.66 mg/dL (0.60-1.20); Glomerular Filtration Rate >60 (60-); Glucose, Blood 163 mg/dL (70-99); Phosphorus, Blood 3.4 mg/dL (2.5-4.9); Potassium, Blood 3.9 mmol/L (3.5-5.5); Sodium, Blood 132 mmol/L (136-145)
--- NOTE | 2021-07-13 05:55 | NUR ---
ROCKY HAS BEEN SLEEPING FOR THE MAJORITY OF THE NIGHT. HE CONTINUES ON AIRVO 70% AND 50L. HE HAS BEEN ALERT/ORIENTED AND ENGAGING. HIS MAIN SHORTNESS OF BREATH COMES WITH SIGNIFICANT ACTIVITY, IE TRYING TO GET OUT OF BED. HE TOLERATED THE TRIP TO MI WELL WITH NRB AND NC. TAKING IN SODA AND WATER NEEDED, USING URINAL FOR VOIDS. HS CBG 352 WITH NO COVERAGE, BUT AM LABS SHOWED GOOD RETURN TO 163, I/O -930. NO FURTHER CHANGES.
--- NOTE | 2021-07-13 18:01 | NUR ---
PT SUMMARY PT REMAINS ON AIRVO SETTINGS 55L 70% FIO2, SATS REMIANED ABOVE 90% PT DESATS WITH MINIMAL EXERTION TO LOW 80'S TAKES TIME TO RECOVER, BP SYSTOLIC 120'S, HR SR 80'S, AFEBRILE. PT WAS ASSISTED TO CHAIR TODAY BED BATH AND ORAL CARE ALSO COMPLETED. PT ABLE TO MOVE INDEPENDENTLY IN BED GETS SOB/ WITH EXERTION. ADEQUATE FOOD AND FLUID INTAKE, USES URINAL FOR TOILETING AND BSC. NO OTHER ISSUES REPORTED, PT STARTED ON XARELTO. ABLE TO MAKE NEEDS KNOWN, WILL REPORT TO ONCOMING SHIFT
[2021-07-14 05:53] LABS: BASOPHILS ABSOLUTE AUTO 0.04 K/mm3 (0.00-0.23); BASOPHILS PERCENT AUTO 0 % (0-2); EOSINOPHILS ABSOLUTE AUTO 0.15 K/mm3 (0.00-0.68); EOSINOPHILS PERCENT AUTO 1 % (0-6); Hematocrit 34.3 % (37.0-53.0); Hemoglobin 12.1 g/dL (13.5-17.5); IMMATURE GRAN ABSOLUTE AUTO 0.54 K/mm3 (0.00-0.10); IMMATURE GRAN PERCENT AUTO 4 % (0-1); LYMPHOCYTES ABSOLUTE AUTO 0.61 K/mm3 (0.84-5.20); LYMPHOCYTES PERCENT AUTO 4 % (21-46); MONOCYTES ABSOLUTE AUTO 0.68 K/mm3 (0.16-1.47); MONOCYTES PERCENT AUTO 5 % (4-13); Mean Corpuscular HGB 31.3 pg (26.0-34.0); Mean Corpuscular HGB Conc 35.3 g/dL (31.5-36.5); Mean Corpuscular Volume 89 fL (80-100); Mean Platelet Volume 9.8 fL (9.1-12.4); NEUTROPHILS ABSOLUTE AUTO 12.23 K/mm3 (1.96-9.15); NEUTROPHILS PERCENT AUTO 86 % (41-73); Platelet Count 341 K/mm3 (150-400); RDW Coefficient Variation 12.7 % (11.7-14.2); RDW Standard Deviation 41.1 fL (35.1-46.3); Red Blood Cell Count 3.86 M/mm3 (4.30-5.90); White Blood Cell Count 14.25 K/mm3 (4.00-11.30)
--- NOTE | 2021-07-14 05:53 | NUR ---
ROCKY STARTED THE SHIFT NEEDING TO HAVE A BM, HE WORKED VERY HARD AT THIS AND BECAME DIAPHORETIC AND DROPPED HIS SAT'S TO HI 70'S. HE WAS ABLE TO HAVE ONE BM BEFORE TAKING A BREAK AND SITTING IN THE CHAIR TO RECOVER. HE WAS ASKED TO NOT MOVE BACK TO THE BSC UNTIL HE KNEW HE WAS READY SO THAT HE WASN'T EXERTING HIMSELF MORE THAN NECESSARY. HE WAS ABLE TO ACCOMPLISH THIS BY 2200. HE CONTINUES ON THE AIRVO 60L 70%, MAINTAINING SATS >90%, HEART RATE HAS BEEN STABLE NSR WITH RATE UP TO 110'S WHEN USING THE BR. CONTINUES TO USE THE URINAL APPROPRIATELY AND DRINKING WATER WHEN AWAKE. HE IS ABLE TO MAKE HIS NEEDS KNOWN BY USING HIS CALL LIGHT APPROPRIATELY. WILL REPORT OFF TO NEXT SHIFT WHEN ABLE.
[2021-07-14 06:01] LABS: Albumin, Blood 1.8 g/dL (3.4-5.0); Anion Gap 7 mmol/L (6-16); Blood Urea Nitrogen 25 mg/dL (8-24); Bun/Creatinine Ratio 38.7 (12.0-20.0); CO2, Blood 28 mmol/L (21-32); Chloride, Blood 98 mmol/L (98-108); Creatinine, Blood 0.65 mg/dL (0.60-1.20); Glomerular Filtration Rate >60 (60-); Glucose, Blood 224 mg/dL (70-99); Phosphorus, Blood 4.1 mg/dL (2.5-4.9); Potassium, Blood 4.2 mmol/L (3.5-5.5); Sodium, Blood 133 mmol/L (136-145)
--- NOTE | 2021-07-14 10:07 | NUR ---
0908 spoke with pt about his morale, his plans for future, and motivation for activity. States he is willing to attempt to prone, but yesterday it was difficult because of back pain. Additional pillows and neck pillow brought into room to help with his comfort. He was proned and is tolerating it well. He agreed to prone for an hour at least, and then he said he is wanting to get into the chair.
--- NOTE | 2021-07-14 19:21 | NUR ---
PT SUMMARY: NO ACUTE CHANGE FOR THE SHIFT, PT HAS PRONE THIS AM UNTIL LUNCH TIME ON AIRVO 55L 70% SATTING ABOVE 90%. PT MOBILE IN BED, DESATS WITH EXERTION. VITALS STABLE CBG ELEVATED >300 WAS GIVEN INSULIN COVERAGE. PT WAS UP IN THE CHAIR FOR LUNCH. ADEQUATE FOOD INTAKE. USES URINAL FOR VOIDING, ENCOURAGED TO PRONE TONIGHT PT AGRREABLE. PT CALLS APPROPRIATELY, CALL LIGHTS IN REACH ABLE TO MAKE NEEDS KNOWN
[2021-07-15 05:25] LABS: BASOPHILS ABSOLUTE AUTO 0.05 K/mm3 (0.00-0.23); BASOPHILS PERCENT AUTO 0 % (0-2); EOSINOPHILS ABSOLUTE AUTO 0.19 K/mm3 (0.00-0.68); EOSINOPHILS PERCENT AUTO 2 % (0-6); Hemoglobin 12.4 g/dL (13.5-17.5); IMMATURE GRAN ABSOLUTE AUTO 0.58 K/mm3 (0.00-0.10); IMMATURE GRAN PERCENT AUTO 5 % (0-1); LYMPHOCYTES ABSOLUTE AUTO 0.72 K/mm3 (0.84-5.20); LYMPHOCYTES PERCENT AUTO 6 % (21-46); MONOCYTES ABSOLUTE AUTO 0.81 K/mm3 (0.16-1.47); MONOCYTES PERCENT AUTO 7 % (4-13); Mean Corpuscular HGB 31.2 pg (26.0-34.0); Mean Corpuscular HGB Conc 35.4 g/dL (31.5-36.5); Mean Corpuscular Volume 88 fL (80-100); Mean Platelet Volume 9.6 fL (9.1-12.4); NEUTROPHILS ABSOLUTE AUTO 9.79 K/mm3 (1.96-9.15); NEUTROPHILS PERCENT AUTO 81 % (41-73); Platelet Count 328 K/mm3 (150-400); RDW Coefficient Variation 12.5 % (11.7-14.2); RDW Standard Deviation 40.5 fL (35.1-46.3); Red Blood Cell Count 3.98 M/mm3 (4.30-5.90); White Blood Cell Count 12.14 K/mm3 (4.00-11.30)
[2021-07-15 05:45] LABS: Albumin, Blood 1.9 g/dL (3.4-5.0); Anion Gap 6 mmol/L (6-16); Blood Urea Nitrogen 20 mg/dL (8-24); Bun/Creatinine Ratio 27.9 (12.0-20.0); CO2, Blood 29 mmol/L (21-32); Calcium, Blood 7.9 mg/dL (8.5-10.1); Chloride, Blood 98 mmol/L (98-108); Creatinine, Blood 0.72 mg/dL (0.60-1.20); Glomerular Filtration Rate >60 (60-); Glucose, Blood 163 mg/dL (70-99); Phosphorus, Blood 4.4 mg/dL (2.5-4.9); Potassium, Blood 4.1 mmol/L (3.5-5.5); Sodium, Blood 133 mmol/L (136-145)
--- NOTE | 2021-07-15 06:35 | NUR ---
PT. PROGRESS NOTE PT. WAS STABLE THROUGHOUT THE NIGHT. ON AIRVO TOLERATING SETTINGS 60L, 71% MAINTAINING O2 STATS ABOVE 92%. NO COMPLICATIONS DURING THE SHIFT. PT. STABLE AND BEBSIDE WITHOUT ANY COMPLICATIONS.
--- NOTE | 2021-07-15 08:20 | NUR ---
PATIENT ATTEMPTED TO SIT UP TO CHAIR WITHOUT SUCCESS. PATIENT ABLE TO SIT AT SIDE OF BED BUT DESATS INTO LOW 70S. FIO2 TURNED UP TO 95%, OXYGEN SATURATION HIGH 80S DURING RECOVERY. PATIENT ABLE TO RECOVER, BACK IN BED. FIO2 NOW AT 85% AND MAINTAINING SATURATION ABOVE 90%. EDUCATED ON IMPORTANCE OF PRONING AND TURNING SIDE TO SIDE.
--- NOTE | 2021-07-15 12:45 | NUR ---
PATIENT REQUESTING MEDICINE FOR NAUSEA DURING PRONING PROCESS. SEE EMAR. PATIENT SUCCESSFULLY ABLE TO PRONE. OXYGEN SATURATION MAINTAINING HIGH 80S, LOW 90S DURING THIS TIME.
--- NOTE | 2021-07-15 19:06 | NUR ---
SHIFT SUMMARY PATIENT REMAINS ON AIRVO AT 60L WITH 60% FIO2. SATURATIONS ARE REMAINING ABOVE 88%. SHORTNESS OF BREATH WITH EXERTION. PATIENT IS ABLE TO TURN SELF IN BED WITH MINIMAL ASSISTANCE. PATIENT EDUCATED ABOUT IMPORTANCE OF PRONING. PATIENT WAS ABLE TO SUCCESSFULLY PRONE FOR 2 HOURS THIS AFTERNOON. PATIENT IS ABLE TO MAKE NEEDS KNOWN TO STAFF. CALL LIGHT IN REACH. WILL REPORT TO FIELD CLINICAL ENGINEER RN.
--- NOTE | 2021-07-16 01:02 | NUR ---
ROCKY HAS BEEN ENCOURAGED TO LAY ON HIS SIDE OR PRONE, HE IS CURRENTLY ON HIS RIGHT SIDE FACING THE DOOR, WITH SATS 92%. HE IS RELUCTANT TO LAY ON HIS SIDE OR HIS TUMMY BUT HE GETS STRONGLY ENCOURAGED BY STAFF TO DO SO. HE HASN'T EXPRESSED ANY FURTHER FEARS.
[2021-07-16 05:06] LABS: BASOPHILS ABSOLUTE AUTO 0.05 K/mm3 (0.00-0.23); BASOPHILS PERCENT AUTO 0 % (0-2); EOSINOPHILS PERCENT AUTO 1 % (0-6); Hematocrit 37.9 % (37.0-53.0); Hemoglobin 13.4 g/dL (13.5-17.5); IMMATURE GRAN PERCENT AUTO 5 % (0-1); LYMPHOCYTES ABSOLUTE AUTO 0.78 K/mm3 (0.84-5.20); LYMPHOCYTES PERCENT AUTO 7 % (21-46); MONOCYTES ABSOLUTE AUTO 0.75 K/mm3 (0.16-1.47); MONOCYTES PERCENT AUTO 7 % (4-13); Mean Corpuscular HGB 31.3 pg (26.0-34.0); Mean Corpuscular HGB Conc 35.4 g/dL (31.5-36.5); Mean Corpuscular Volume 89 fL (80-100); Mean Platelet Volume 9.5 fL (9.1-12.4); NEUTROPHILS ABSOLUTE AUTO 9.08 K/mm3 (1.96-9.15); NEUTROPHILS PERCENT AUTO 80 % (41-73); Platelet Count 308 K/mm3 (150-400); RDW Coefficient Variation 12.6 % (11.7-14.2); RDW Standard Deviation 40.9 fL (35.1-46.3); Red Blood Cell Count 4.28 M/mm3 (4.30-5.90); White Blood Cell Count 11.36 K/mm3 (4.00-11.30)
[2021-07-16 05:29] LABS: Albumin, Blood 2.2 g/dL (3.4-5.0); Anion Gap 6 mmol/L (6-16); Blood Urea Nitrogen 21 mg/dL (8-24); Bun/Creatinine Ratio 29.4 (12.0-20.0); CO2, Blood 30 mmol/L (21-32); Calcium, Blood 8.5 mg/dL (8.5-10.1); Chloride, Blood 96 mmol/L (98-108); Creatinine, Blood 0.71 mg/dL (0.60-1.20); Glomerular Filtration Rate >60 (60-); Glucose, Blood 158 mg/dL (70-99); Phosphorus, Blood 4.4 mg/dL (2.5-4.9); Sodium, Blood 132 mmol/L (136-145)
--- NOTE | 2021-07-16 06:32 | NUR ---
ROCKY CONTINUES ON AIRVO 60L 65%, HE IS TOLERATING WELL, HE SPENT HIS NIGHT TURNED ON THE RIGHT SIDE FOR SEVERAL HOURS, HE REFUSED TO PRONE, ENCOURAGED TO SIT ON THE EDGE OF THE BED, OR COMPLETELY UPRIGHT RATHER THAN "LOUNGING" POSITION. HE KEEPS SAYING, "I KNOW, I WILL". SATS HAVE BEEN >90% FOR THE MAJORITY OF THE NIGHT, DOES GET SHORT OF BREATH WITH ACTIVITY. USES URINAL APPROPRIATELY, SIPPING FLUIDS FROM BEDSIDE TABLE DESIRED.
--- NOTE | 2021-07-16 18:00 | NUR ---
PT BLOOD SUGAR 382. CALLED DR. MCCRAY AND INSTRUCTED TO GIVE 10 UNITS OF INSULIN AND RECHECK PT IN TWO HOURS.
--- NOTE | 2021-07-16 18:38 | NUR ---
SHIFT SUMMARY PT A/O X4 AND SBA/IND IN THE ROOM. HE SEEMS DISCOURAGED BY HIS LACK OF PROGRESSED AND HAS MADE COMMENTS ASKING IF HE IS GOING TO . ON AIRVO AT 60L TO AMBULATE AND 45L AT REST. BLOOD GLUCOSE WAS 382. INSTRUCTED TO MEDICATE WITH 10 UNITS AND TO RECHECK IN 2 HOURS. VSS. WILL REPORT TO ONCOMING RN.
--- NOTE | 2021-07-17 04:41 | NUR ---
LYING IN LOW FOWLERS WITH EYES CLOSED. HAS RESTED OFF AND ON THIS SHIFT. CBG REPEATED AFTER BGL ELEVATED AND COVERAGE GIVEN. FOLLOW UP CBG WITHIN ACCEPTABLE LIMITS. DROPLETTE PRECAUTIONS CONTINUE TO BE IN PLACE. C/O LEFT HAND CRAMPING, STATES THAT IT IS PROBALAY D/.T HIS HAND BEING COLD. WARM BLANKET PROVIDED, STATES IT FEELS BETTER. CONTINUES ON THE AIRVO AT 65L AT 80%, TOLERATING WELL. DENIES FURTHER NEEDS OR WANTS AT THIS TIME. SAFETY MEASURES IN PLACE. WILL CONTINUE TO MONITOR AND GIVE HAND OFF TO ONCOMING SHIFT USING SBAR DURING BEDSIDE REPORT.
[2021-07-17 05:05] LABS: BASOPHILS ABSOLUTE AUTO 0.05 K/mm3 (0.00-0.23); BASOPHILS PERCENT AUTO 0 % (0-2); EOSINOPHILS ABSOLUTE AUTO 0.21 K/mm3 (0.00-0.68); EOSINOPHILS PERCENT AUTO 2 % (0-6); Hematocrit 38.4 % (37.0-53.0); Hemoglobin 13.5 g/dL (13.5-17.5); IMMATURE GRAN ABSOLUTE AUTO 0.59 K/mm3 (0.00-0.10); IMMATURE GRAN PERCENT AUTO 5 % (0-1); LYMPHOCYTES ABSOLUTE AUTO 0.87 K/mm3 (0.84-5.20); LYMPHOCYTES PERCENT AUTO 7 % (21-46); MONOCYTES ABSOLUTE AUTO 0.75 K/mm3 (0.16-1.47); MONOCYTES PERCENT AUTO 6 % (4-13); Mean Corpuscular HGB 30.8 pg (26.0-34.0); Mean Corpuscular HGB Conc 35.2 g/dL (31.5-36.5); Mean Corpuscular Volume 88 fL (80-100); NEUTROPHILS ABSOLUTE AUTO 9.34 K/mm3 (1.96-9.15); NEUTROPHILS PERCENT AUTO 79 % (41-73); Platelet Count 281 K/mm3 (150-400); RDW Coefficient Variation 12.5 % (11.7-14.2); RDW Standard Deviation 40.4 fL (35.1-46.3); Red Blood Cell Count 4.38 M/mm3 (4.30-5.90); White Blood Cell Count 11.81 K/mm3 (4.00-11.30)
--- NOTE | 2021-07-17 05:32 | NUR ---
LYING ON RIGHT SIDE FACING THE WINDOW, UNABLE TO TOLERATE ATTEMPTS TO PRONE. HAS RESTED OFF AND ON THIS SHIFT. CBG REPEATED AFTER BGL ELEVATED AND COVERAGE GIVENAFTER MD INFORMED. FOLLOW UP CBG ELEVATED, COVERED PER SS AND MD INFORMED. 2ND FOLLOW UP SHOWED WITHIN ACCEPTABLE LIMITS. DROPLETTE PRECAUTIONS CONTINUE TO BE IN PLACE. CONTINUES ON O2 AT 5L/NC, TOLERATING WELL. BEDDING CHANGED PRN D/T REMOVING ATTENDS AND URINATING IN BED. O2 REAPPLIED MULTIPLE TIMES WHEN PT TAKES IT OFF AND LAYS IT IN THE BED NEXT TO HIM OR PLACES IT ON TOP OF HIS FOREHEAD. DENIES FURTHER NEEDS OR WANTS AT THIS TIME. SAFETY MEASURES IN PLACE. WILL CONTINUE TO MONITOR AND GIVE HAND OFF TO ONCOMING SHIFT USING SBAR DURING BEDSIDE REPORT.
[2021-07-17 05:36] LABS: Albumin, Blood 2.2 g/dL (3.4-5.0); Anion Gap 6 mmol/L (6-16); Blood Urea Nitrogen 19 mg/dL (8-24); Bun/Creatinine Ratio 28.8 (12.0-20.0); CO2, Blood 29 mmol/L (21-32); Calcium, Blood 8.5 mg/dL (8.5-10.1); Chloride, Blood 97 mmol/L (98-108); Creatinine, Blood 0.66 mg/dL (0.60-1.20); Glomerular Filtration Rate >60 (60-); Glucose, Blood 96 mg/dL (70-99); Phosphorus, Blood 5.1 mg/dL (2.5-4.9); Sodium, Blood 132 mmol/L (136-145)
--- NOTE | 2021-07-17 18:52 | NUR ---
Pt has been up to the chair for a good part of the day. Seems to be feeling down, lacking motivation. Also states that he is afraid of getting up because yesterday he experienced hypoxia during activity. STates he is constipated. His oxygen delivery was increased from 80% to 90% in anticipation of [place] [facility] but then when he was attempting to pass the stool he experienced significant distress and hypoxia was noted 75-77%. Staff assisted him back to bed, and 100% NRB mask was applied over the AirVo for recovery while he was sitting up. Appetite good, drinking water. Given miralax this evening with dinner. AirVo delivery 80-83% Fio2, 60 l/min flow this evening.
[2021-07-18 04:16] LABS: BASOPHILS ABSOLUTE AUTO 0.04 K/mm3 (0.00-0.23); BASOPHILS PERCENT AUTO 0 % (0-2); EOSINOPHILS ABSOLUTE AUTO 0.06 K/mm3 (0.00-0.68); EOSINOPHILS PERCENT AUTO 1 % (0-6); Hemoglobin 12.8 g/dL (13.5-17.5); IMMATURE GRAN ABSOLUTE AUTO 0.35 K/mm3 (0.00-0.10); IMMATURE GRAN PERCENT AUTO 3 % (0-1); LYMPHOCYTES ABSOLUTE AUTO 0.73 K/mm3 (0.84-5.20); LYMPHOCYTES PERCENT AUTO 6 % (21-46); MONOCYTES ABSOLUTE AUTO 0.55 K/mm3 (0.16-1.47); MONOCYTES PERCENT AUTO 5 % (4-13); Mean Corpuscular HGB 31.4 pg (26.0-34.0); Mean Corpuscular HGB Conc 35.6 g/dL (31.5-36.5); Mean Corpuscular Volume 88 fL (80-100); Mean Platelet Volume 9.8 fL (9.1-12.4); NEUTROPHILS PERCENT AUTO 86 % (41-73); Platelet Count 264 K/mm3 (150-400); RDW Coefficient Variation 12.5 % (11.7-14.2); RDW Standard Deviation 40.7 fL (35.1-46.3); Red Blood Cell Count 4.08 M/mm3 (4.30-5.90); White Blood Cell Count 12.23 K/mm3 (4.00-11.30)
[2021-07-18 04:41] LABS: Albumin, Blood 2.1 g/dL (3.4-5.0); Anion Gap 6 mmol/L (6-16); Blood Urea Nitrogen 20 mg/dL (8-24); Bun/Creatinine Ratio 28.1 (12.0-20.0); CO2, Blood 29 mmol/L (21-32); Calcium, Blood 8.7 mg/dL (8.5-10.1); Chloride, Blood 97 mmol/L (98-108); Creatinine, Blood 0.71 mg/dL (0.60-1.20); Glomerular Filtration Rate >60 (60-); Glucose, Blood 208 mg/dL (70-99); Phosphorus, Blood 4.9 mg/dL (2.5-4.9); Potassium, Blood 4.2 mmol/L (3.5-5.5); Sodium, Blood 132 mmol/L (136-145)
--- NOTE | 2021-07-18 06:00 | NUR ---
LYING IN SEMI FOWLERS WITH EYES CLOSED, UNABLE TO TOLERATE ATTEMPTS TO PRONE. HAS RESTED OFF AND ON THIS SHIFT. DROPLETTE PRECAUTIONS CONTINUE TO BE IN PLACE. PT ON AIRVO AT 60L AND FIO2 AT 80%. CONTINUES WITH SADNESS AND DEPRESSION WITH LACK OF PROGRESSION OF DISEASE. DENIES FURTHER NEEDS OR WANTS AT THIS TIME. SAFETY MEASURES IN PLACE. WILL CONTINUE TO MONITOR AND GIVE HAND OFF TO ONCOMING SHIFT USING SBAR DURING BEDSIDE REPORT.
--- NOTE | 2021-07-18 17:00 | NUR ---
call placed to Dr. Jeronimo regarging blood gulcose of 379. no new orders reveived. Per Md already placed order to start lantus tonight to regulate elevate blood sugars.
--- NOTE | 2021-07-18 18:41 | NUR ---
RN SHIFT SUMMARY PT APPEARS TO BE IN GOOD SPIRITS TODAY. PT HAS H/O ANXIETY AND DEPPRESSION AND HAS BEGUN TAKEN SETRALINE TODAY. PT CONTINUES TO USE NON-REBREATHER WHEN AMBULATING TO CHAIR.SPO2 96% ON AIRVO:40L, 69% FIO2. PT [employer]. HE ATE FOOD BROUGHT IN BY FRIEND. HE ATE A VERY SMALL AMOUNT OF POTATOES AND BEANS WITHA TINY PIEECE OF CORNBREAD. NURSE REINFORCED PROPER EATING FOR DM PT WITH CARB LIMITATIONS A FRIENDLY REMINDER TO PT PRIOR TO HIS CONSUMPTION.
[2021-07-19 04:00] LABS: BASOPHILS ABSOLUTE AUTO 0.03 K/mm3 (0.00-0.23); BASOPHILS PERCENT AUTO 0 % (0-2); EOSINOPHILS PERCENT AUTO 1 % (0-6); Hematocrit 36.1 % (37.0-53.0); Hemoglobin 12.7 g/dL (13.5-17.5); IMMATURE GRAN ABSOLUTE AUTO 0.27 K/mm3 (0.00-0.10); IMMATURE GRAN PERCENT AUTO 2 % (0-1); LYMPHOCYTES ABSOLUTE AUTO 0.87 K/mm3 (0.84-5.20); LYMPHOCYTES PERCENT AUTO 7 % (21-46); MONOCYTES ABSOLUTE AUTO 0.56 K/mm3 (0.16-1.47); MONOCYTES PERCENT AUTO 5 % (4-13); Mean Corpuscular HGB Conc 35.2 g/dL (31.5-36.5); Mean Corpuscular Volume 88 fL (80-100); Mean Platelet Volume 9.5 fL (9.1-12.4); NEUTROPHILS ABSOLUTE AUTO 9.88 K/mm3 (1.96-9.15); NEUTROPHILS PERCENT AUTO 84 % (41-73); Platelet Count 238 K/mm3 (150-400); RDW Coefficient Variation 12.4 % (11.7-14.2); RDW Standard Deviation 39.8 fL (35.1-46.3); White Blood Cell Count 11.71 K/mm3 (4.00-11.30)
[2021-07-19 04:25] LABS: Albumin, Blood 2.3 g/dL (3.4-5.0); Anion Gap 4 mmol/L (6-16); Blood Urea Nitrogen 20 mg/dL (8-24); Bun/Creatinine Ratio 28.1 (12.0-20.0); CO2, Blood 30 mmol/L (21-32); Chloride, Blood 97 mmol/L (98-108); Creatinine, Blood 0.71 mg/dL (0.60-1.20); Glomerular Filtration Rate >60 (60-); Glucose, Blood 172 mg/dL (70-99); Phosphorus, Blood 4.5 mg/dL (2.5-4.9); Sodium, Blood 131 mmol/L (136-145)
--- NOTE | 2021-07-19 05:23 | NUR ---
INSPECTOR OUTSIDE STEAM DISTRIBUTION SUMMARY PT AAOX4 AND PLEASANT. CALLS APPROPRIATELY FOR ASSISTANCE. STARTED NIGHT ON AIRVO 40L @ 68% FIO2 AND HAS BEEN TITRATED DOWN TO 40L @ 58%, MAINTAINING O2 SATS AT 92-94%. PT DID WELL TRANSFERRING FROM CHAIR TO BED AND REPORTED THAT HE DIDN'T FEEL SOB AFTER AND WAS ABLE TO MAINTAIN SATS >90%. VSS, WILL CONTINUE TO MONITOR.
--- NOTE | 2021-07-19 14:31 | NUR ---
monitoring from [facility] will remain for plan of care after discharge.
--- NOTE | 2021-07-19 18:51 | NUR ---
SHIFT RN SUMMARY PT HAS CONTINUE TO BREATHE WELL HAS SPO2 IS 97% AT 15 HNC. PT HAS RECIEVED ALL SCHEDULED MEDS AND VITAL SIGNS REMAIN STABLE. PT SHOWS POSITIVE ATTITUDE TOWARDS RECOVERY.
[2021-07-20 04:23] LABS: Hematocrit 35.1 % (37.0-53.0); Hemoglobin 12.4 g/dL (13.5-17.5); Mean Corpuscular HGB 31.3 pg (26.0-34.0); Mean Corpuscular HGB Conc 35.3 g/dL (31.5-36.5); Mean Corpuscular Volume 89 fL (80-100); Mean Platelet Volume 9.7 fL (9.1-12.4); Platelet Count 231 K/mm3 (150-400); RDW Coefficient Variation 12.5 % (11.7-14.2); RDW Standard Deviation 40.4 fL (35.1-46.3); Red Blood Cell Count 3.96 M/mm3 (4.30-5.90); White Blood Cell Count 10.55 K/mm3 (4.00-11.30)
[2021-07-20 04:44] LABS: Alanine Aminotransfer (ALT/SGP 53 U/L (12-78); Albumin, Blood 2.3 g/dL (3.4-5.0); Albumin/Globulin Ratio 0.5 (0.8-1.8); Alk Phos 35 U/L (50-136); Anion Gap 5 mmol/L (6-16); Aspartate Aminotrans (AST/SGOT 15 U/L (12-37); Bilirubin, Total 0.6 mg/dL (0.1-1.0); Blood Urea Nitrogen 22 mg/dL (8-24); Bun/Creatinine Ratio 32.1 (12.0-20.0); CO2, Blood 29 mmol/L (21-32); Calcium, Blood 8.3 mg/dL (8.5-10.1); Chloride, Blood 98 mmol/L (98-108); Creatinine, Blood 0.69 mg/dL (0.60-1.20); Globulin, Blood 4.2 g/dL (2.2-4.0); Glomerular Filtration Rate >60 (60-); Glucose, Blood 157 mg/dL (70-99); Magnesium, Blood 2.1 mg/dL (1.6-2.4); Potassium, Blood 4.1 mmol/L (3.5-5.5); Sodium, Blood 132 mmol/L (136-145); Total Protein, Blood 6.5 g/dL (6.4-8.2)
--- NOTE | 2021-07-20 05:51 | NUR ---
SHIFT SUMMARY: NO SIGNIFICANT CHANGES THIS SHIFT. PT A&O X4. VS STABLE. PT REMAINS ON 13L HIGH FLOW NC WHILE AWAKE. PT PREFERS TO BE ON 15L DURING NIGHT D/T SLEEP APNEA. O2 >93%. PT ENCOURAGED TO PRONE, STATES HE WILL PRONE DURING THE DAY TODAY. O2 SIGNIFICANTLY DROPPING WITH LITTLE ACTIVITY. PT TRANSFERED FROM CHAIR TO BED IN BEGINNING OF SHIFT AND O2 DROPPED TO 78%. NONREBREATHER PLACED AND SATS BACK UP IN 90'S. LUNGS CLEAR AND DIMINISHED THROUGHOUT. VOIDING WELL IN URINAL.
--- NOTE | 2021-07-20 13:32 | NUR ---
Provided spritual care visit. Pt feels he is improving and needing less oxygen. He has been here for some time and I reassured him he was on the right track and in the right place to get the help he needs. I prayed for his trajectory of recovery to stay on track and for there to be no setbacks or complications. Pt was appreciative of the visit and the prayer.
--- NOTE | 2021-07-20 18:55 | NUR ---
RN SHIFT SUMMARY PT REMAINS STABLE. PT IS TOLERATING 15L WITH HNC @ SPO2 94. PT REPORTED A "LIGHT NAGGING HEADACHE" WHICH WAS SUCCFULLY REMEDIED WITH ACETOMINOPHEN 650 MG PO. PT DENIES ANY DISCOMFORT/PAIN AT THIS TIME.
[2021-07-21 04:36] LABS: Hemoglobin 13.3 g/dL (13.5-17.5); Mean Corpuscular HGB 31.2 pg (26.0-34.0); Mean Corpuscular HGB Conc 35.9 g/dL (31.5-36.5); Mean Corpuscular Volume 87 fL (80-100); Mean Platelet Volume 9.5 fL (9.1-12.4); Platelet Count 237 K/mm3 (150-400); RDW Coefficient Variation 12.4 % (11.7-14.2); RDW Standard Deviation 39.8 fL (35.1-46.3); Red Blood Cell Count 4.26 M/mm3 (4.30-5.90); White Blood Cell Count 11.37 K/mm3 (4.00-11.30)
[2021-07-21 04:55] LABS: Anion Gap 5 mmol/L (6-16); Blood Urea Nitrogen 19 mg/dL (8-24); Bun/Creatinine Ratio 26.8 (12.0-20.0); CO2, Blood 29 mmol/L (21-32); Chloride, Blood 97 mmol/L (98-108); Creatinine, Blood 0.71 mg/dL (0.60-1.20); Glomerular Filtration Rate >60 (60-); Glucose, Blood 162 mg/dL (70-99); Sodium, Blood 131 mmol/L (136-145)
--- NOTE | 2021-07-21 06:30 | NUR ---
SHIFT SUMMARY S/P COVID, A/O X4, VSS, STARTED AT 15L HFNC c SATS > 98%, TITRATED DOWN TO 12L HFNC c SATS > 96%. TOLERATED PO, REPORTS FEELING SLIGHTLY SOB c EXERTION AND A LOT OF TALKING SO THIS WAS KEPT MINIMAL TO SUPPORT OXYGENATION. NO ACUTE EVENTS THIS SHIFT. CALL LIGHT IN REACH, WILL CTM AND REPORT TO DAY RN.
--- NOTE | 2021-07-21 17:30 | NUR ---
MESSAGE LEFT FOR DR MASTERS TO RETURN MY CALL REGARDING PT CBG OF GREATER THAN 350. PT SITTING UP IN CHAIR MOST OF SHIFT, USES IS INDEPENDENTLY EVERY 1-2 HOURS. PT DENIES SOB AT REST AND STATES BECOMES SOB WITH MINIMAL ACTIVITY. OXYGEN AT 15 LITERS.
--- NOTE | 2021-07-22 04:24 | NUR ---
SHIFT SUMMARY S/P FOR COVID. PT AOX4. VSS. PT ON 15L HFNC WEANED DOWN TO 14L AT SLEEP TOLERATING IT WELL WITH O2 SAT BETWEEN 93-96% AT REST. PT WAS UP IN CHAIR AT THE BEGINNING OF SHIFT. PT HAD SPONGE BATH, PT DESAT WITH MOVEMENT ON 80'S AND USING HIS NRB AT 15L. PT DENIES CHEST PAIN. PT ON TELE AT SINUS AT 80'S. NO ACUTE CHANGES OVERNIGHT. CALL LIGHT WITHIN REACH. WILL PROVIDE REPORT TO ONCOMING NURSE.
--- NOTE | 2021-07-22 18:18 | NUR ---
SHIFT SUMMARY PT HAS DONE WELL TODAY. PLEASANT & UPBEAT. NO CHANGES TO O2 VIA NC EXCEPT W/ ACTIVITY THEN SWITCHED TO A NON-BREATHER & SATS DROP TO 80's BUT RECOVERS QUICKLY. UP IN CHAIR FOR MOST OF SHIFT.
--- NOTE | 2021-07-23 05:16 | NUR ---
SHIFT SUMMARY PT. ALERT AND CALM AT BEDSIDE. A/OX4. CALLS APPROPRIATELY AND COOPERATIVE WITH STAFF. TOLERATES GOOD PO DIET. ON HFNC @ 15L MAINTANING O2 STATS ABOVE 91%. DOES DESAT WITH TRAN[place]ERING [place] [facility] [place] THE NONREBREATHER AT 15L. IT TAKES ABOUT 1 MINT. TO GET O2 ABOVE 90%. DID HAVE A BOWEL MOVEMENT. DENIES ANY PAIN OR N/V. BLOOD SUGARS CONT. ELEVATED. NO ACUTE CHANGES. WILL CONT. CARE TILL SHIFT CHANGE.
[2021-07-23 06:13] LABS: Hematocrit 37.4 % (37.0-53.0); Hemoglobin 13.3 g/dL (13.5-17.5); Mean Corpuscular HGB 31.3 pg (26.0-34.0); Mean Corpuscular HGB Conc 35.6 g/dL (31.5-36.5); Mean Corpuscular Volume 88 fL (80-100); Mean Platelet Volume 9.3 fL (9.1-12.4); Platelet Count 218 K/mm3 (150-400); RDW Coefficient Variation 12.6 % (11.7-14.2); RDW Standard Deviation 39.9 fL (35.1-46.3); Red Blood Cell Count 4.25 M/mm3 (4.30-5.90); White Blood Cell Count 10.23 K/mm3 (4.00-11.30)
[2021-07-23 06:32] LABS: Alanine Aminotransfer (ALT/SGP 79 U/L (12-78); Albumin, Blood 2.5 g/dL (3.4-5.0); Albumin/Globulin Ratio 0.6 (0.8-1.8); Alk Phos 33 U/L (50-136); Anion Gap 6 mmol/L (6-16); Aspartate Aminotrans (AST/SGOT 15 U/L (12-37); Bilirubin, Total 0.7 mg/dL (0.1-1.0); Blood Urea Nitrogen 20 mg/dL (8-24); Bun/Creatinine Ratio 28.4 (12.0-20.0); CO2, Blood 28 mmol/L (21-32); Calcium, Blood 8.1 mg/dL (8.5-10.1); Chloride, Blood 98 mmol/L (98-108); Creatinine, Blood 0.71 mg/dL (0.60-1.20); Globulin, Blood 4.4 g/dL (2.2-4.0); Glomerular Filtration Rate >60 (60-); Glucose, Blood 129 mg/dL (70-99); Potassium, Blood 3.9 mmol/L (3.5-5.5); Sodium, Blood 132 mmol/L (136-145); Total Protein, Blood 6.9 g/dL (6.4-8.2)
--- NOTE | 2021-07-23 07:10 | NUR ---
recvd report from previous shift RN, pt sleeping in bed, bed in lowest position, bed rails up, call light within reach, high flow NC in place at 14L
--- NOTE | 2021-07-23 08:38 | NUR ---
pt sitting up in bed, a/o x 4, pleasant/cooperative. notified infection control of admissin status >20 days, possible removal from isolation pending MD approval
--- NOTE | 2021-07-23 08:44 | NUR ---
pt taken off isolation per MD and infection control; notified, pt, environmental servies and foam charger
--- NOTE | 2021-07-23 15:21 | NUR ---
pt sitting up in chair resting, a/o x 4, pleasant/cooperative, reports no pain, SPO2 98% on 14l high flow NC. pt tolerating PO intake, has urinated >400 ml using urinal this shift, lungs remain diminished in bases with fine crackles L side
--- NOTE | 2021-07-23 16:28 | NUR ---
pt to be transferred to medical floor, report given to medical floor JS Ennis. pt notified of transfer.
--- NOTE | 2021-07-23 17:07 | NUR ---
SHIFT SUMMARY PT TRANSFERRED TO UNIT THIS NOLAN FROM PCU. PT IS AOX4 AND PLEASANT. PT DENIES PAIN, N/V, SOB. PT IS SBA IN ROOM. PT IS NOT IN ISOLATION. PT APPETITE IS GOOD. NO PROCEDURES DONE ON THE UNIT THIS NOLAN. PT IS ON 15 L VIA HIGH FLOW NC WITH SATS GREATER THAN 90%. PT IS IN BED, CALL LIGHT IN REACH, LOW POSITION.
--- NOTE | 2021-07-24 04:40 | NUR ---
SHIFT SUMMARY NO ACUTE CHANGES THIS SHIFT, NO C/O ANY KIND, MAINTAINS 02 SATS GREATER THAN 90% ON 14L HIFLO NC AT REST BUT EASILY DESATS W/ACTIVITY, REQUIRING 15L NRB W/AMBULATION TO BSC. SLEPT ROTATING SIDE TO SIDE T/O THE NIGHT, SLEPT T/O THE NIGHT & SLEEPING AT THIS TIME, CALL LIGHT IN REACH, WILL CONT TO MONITOR UNTIL REPORT GIVEN TO DAY RN.
--- NOTE | 2021-07-24 18:40 | NUR ---
SHIFT SUMMARY 55 YR M ADMITED WITH COVID. PT IS A&O AND UP MINIMALLY WITH SBA DUE TO DESATS. PT IS CURRENTLY ON 14L HIGH FLOW N/C AND SUPPLEMENTS WITH 15L NRB FOR ACTIVITY. SATS MAINTAINED IN 90'S AT REST. PT DID ATTEMPT TO LAY PRONE FOR MAJORITY OF DAY BUT DID GET NOSE BLEED AND RETURNED TO BACK LAYING POSITION. PT IS IN GOOD SPIRITS, NO OTHER ACUTE CHANGES THIS SHIFT.
[2021-07-25 05:13] LABS: Hematocrit 39.6 % (37.0-53.0); Hemoglobin 13.8 g/dL (13.5-17.5); Mean Corpuscular HGB 30.9 pg (26.0-34.0); Mean Corpuscular HGB Conc 34.8 g/dL (31.5-36.5); Mean Corpuscular Volume 89 fL (80-100); Mean Platelet Volume 9.2 fL (9.1-12.4); Platelet Count 255 K/mm3 (150-400); RDW Coefficient Variation 12.6 % (11.7-14.2); RDW Standard Deviation 41.3 fL (35.1-46.3); Red Blood Cell Count 4.47 M/mm3 (4.30-5.90); White Blood Cell Count 10.14 K/mm3 (4.00-11.30)
[2021-07-25 05:38] LABS: Alanine Aminotransfer (ALT/SGP 84 U/L (12-78); Albumin, Blood 2.8 g/dL (3.4-5.0); Albumin/Globulin Ratio 0.6 (0.8-1.8); Alk Phos 38 U/L (50-136); Anion Gap 5 mmol/L (6-16); Aspartate Aminotrans (AST/SGOT 16 U/L (12-37); Bilirubin, Total 0.8 mg/dL (0.1-1.0); Blood Urea Nitrogen 16 mg/dL (8-24); Bun/Creatinine Ratio 23.1 (12.0-20.0); CO2, Blood 28 mmol/L (21-32); Calcium, Blood 8.4 mg/dL (8.5-10.1); Chloride, Blood 99 mmol/L (98-108); Creatinine, Blood 0.69 mg/dL (0.60-1.20); Globulin, Blood 4.7 g/dL (2.2-4.0); Glomerular Filtration Rate >60 (60-); Glucose, Blood 143 mg/dL (70-99); Potassium, Blood 3.9 mmol/L (3.5-5.5); Sodium, Blood 132 mmol/L (136-145); Total Protein, Blood 7.5 g/dL (6.4-8.2)
--- NOTE | 2021-07-25 06:15 | NUR ---
SUMMARY: PT A/OX4, CALLS APPROPRIATELY TO SPECIFY NEEDS AND IS PLEASANT AND COOPERATIVE W/CARE. HE REMAINS ON 14L HF O2 W/SPO2 >90% ON CONT BIOX AT REST BUT DESATS W/MINIMAL EXERTION AND SUPPLEMENTS W/AN ADDITIONAL 16L O2 VIA NRB FOR ACTIVITY. HE'D USED HIS URINAL IN BED AND WAS OBSERVED TO DESAT TO 80'S% BUT RECOVERED QUICKLY THEN WAS UP TO BSC W/1PA FOR BM THIS AM AND WAS NOTED TO DESAT TO 70'S%. HE BECAME VERY TACHYPNEIC, HYPERVENTILATING W/ANXIETY AND HAD COUGHING FIT MAKING RECOVERY MORE DIFFICULT. PT REPORTED "SEEING STARS" AND WAS SAFELY ASSISTED BACK TO BED BUT TOOK 15+ MINS TO MAINTAIN SPO2>90% AGAIN. SINCE PT DIDN'T TOLERATE BSC WELL HE IS AGREEABLE TO USE BEDPAN FOR SAFETY AND PREVENTION OF RESPIRATORY EXACERBATION. HE'S INQUIRING HOW SOON HE IS ABLE TO GET THE VACCINE, WILL HAVE DAY STAFF DISCUSS THIS W/HIM. SALINE SPRAY AND EYE GTTS PROVIDED PER PT REQUEST PRN. PT DENIED PAIN AND C/O OTHER THAN DYSPNEA AND SOB. VSS/AFEBRILE, NO ACUTE CHANGES. WCTM AND REPORT TO DAY RN.
--- NOTE | 2021-07-25 16:01 | NUR ---
Spiritual care visit conducted. Patient is lying in bed and alert. Patient describes his discouragement and the sources of strength for him. I provide scripture reading, inspirational music and prayer according to what patient stated as good sources for him. He responds well and shows signs of increased cheng and hope. Patient voices his appreciation. I will continue to remain available to patient and family.
--- NOTE | 2021-07-25 19:43 | NUR ---
SHIFT SUMMARY: NO ACUTE EVENTS TO REPORT THIS SHIFT. PT A&O; CALM AND COOPERATIVE WITH CARE. SOB WITH EXERTION; O2 @ 14L. STEROIDS CONTINUING. REPORT GIVEN TO ONCOMING RN.
--- NOTE | 2021-07-26 04:51 | NUR ---
SUMMARY NO NEW ISSUES. PT STILL ON HIGH FLOW O2. PT GETS SEVERE SOB W/ EXERTION. PT IS AWARE OF HIS LIMITATIONS. PT HAS SLEPT DURING SHIFT. CALL LIGHT IN REACH.
--- NOTE | 2021-07-26 18:22 | NUR ---
SHIFT SUMMARY: NO ACUTE EVENTS TO REPORT THIS SHIFT. PT A&O; CALM ANDCOOPERATIVE WITH CARE. NO C/O PAIN THIS SHIFT. PT REQUIRES 14L O2 @ REST; ADDITIONAL 15L VIA NON-REBREATHER WITH EXERTION. BLOOD SUGARS STABLE SINCE FINISHING STEROIDS. WCTM.
--- NOTE | 2021-07-27 05:04 | NUR ---
PARING MACHINE OPERATOR SUMMARY PT A/O X4, SLEPT WELL TONIGHT. USES URINAL INDEPENDENTLY. CONTINUES TO BE ON 15L VIA HIGH FLOW SATTING INT HE MID 90'S. PT REQUIRES ADDIONAL 15L NRB WHILE UP. DENIES PAIN. SOB WITH EXERTION AND DESATS QUICK WITH ACTIVITY. PT EXPRESSED TO THIS RN THAT HE'S AFRAID AND ANXIOUS TO GO TO THE BSC WHENEVER HE NEEDS TO HAVE A BM. ANXIOUS BECAUSE HE DESATS WITH ACTIVITY. PT ALSO EXPRESSES HE DOES NOT WANT TO USE BEDPAN. THIS RN EDUCATED PT THAT IT IS BEST TO GO SOON HE NEEDS TO HAVE A BOWEL MOVEMENT TO AVOID CONSTIPATION LATER. STAFF WILL ASSIST PT ON BEDPAN NEXT TIME PT CALLS FOR IT. CALL LIGHT WITHIN REACH, WILL CONTINUE TO MONITOR.
--- NOTE | 2021-07-27 15:30 | NUR ---
PATIENT CONTINUES TO BE PLEASANT AND COOPERATIVE WITH STAFF AND CARE. RE-STARTED ON PO DEXAMETHASONE TODAY TO ASSIST WITH PNA AND RESP FUNCTION. CONTINUES ON 15L O2 HIGH-FLOW AT REST AND AN ADDITIONAL 15 O2 NRB WITH ANY EXERTION. O2 SATS MAINTAINING IN THE 90-95%. CALL LIGHT WITHIN REACH.
--- NOTE | 2021-07-27 18:01 | NUR ---
PATIENT'S CBG WAS 444 PRIOR TO DINNER. I ADMINISTED 10 UNITS OF HUMALOG PER SS, THEN CALLED TO NOTIFY DR MOREJON @ 0490. NEW ORDERS GIVEN TO INCREASE SEMGLEE TO 25 UNITS QHS.
--- NOTE | 2021-07-28 04:41 | NUR ---
SHIFT SUMMARY PT ADMITTED FOR PNUE D/T COVID 19. FULL CODE. ON 15L HIGHFLOW SATS HAVE BEEN 95-100% DURING SHIFT.PT HAS SOB WITH ANY EXCERTION, NO DISTRESS NOTED DURING THIS SHIFT. VS STABLE. NO SIGNIFICANT CHANGES THROUGHOUT SHIFT. AAOX4.
--- NOTE | 2021-07-28 19:07 | NUR ---
PATIENT HAD UNEVENTFUL DAY. HE IS ALERT AND ORIENTED X 4. NO COMPLAINTS OF PAIN. SOB WITH EXERTION. HE HAS BEEN UP TO CHAIR SINCE LUNCH TODAY. IV ACCESS UNREMARKABLE. VERY PLEASANT AND COOPERATIVE.
--- NOTE | 2021-07-29 04:39 | NUR ---
SHIFT SUMMARY PT ADMITTED PNEU R/T COVID 19. REQUIRES HIGHHLOW NC AT 15L. PT GETS SOB WITH ANY EXCERTION. NO DISTRESS NOTED. VS. AAOX4. ABLE TO MAKE NEEDS KNOWN. NO SIGNIFICANT EVENTS DURING THIS SHIFT.
--- NOTE | 2021-07-29 13:31 | NUR ---
pt complained of diarrhea, medicated as prescribed
--- NOTE | 2021-07-29 18:27 | NUR ---
A+O, high cbg at dinner time, covered with r insulin, call light in reach, 9L via high flow, fluids infusing with no s/s of infection or infiltration, will continue to monitor until share report with noc nurse
--- NOTE | 2021-07-30 04:19 | NUR ---
SHIFT SUMMARY FULL CODE PT ADMITTED FOR PNEU R/T COVID 19+. ON 9L HIGHFLOW MAINTAINING SATS ABOVE 95%. NO DISTRESS NOTED.PT AAOX4. ABLE TO MAKE NEEDS KNOWN. VS STABLE. NO SIGNIFICANT CHANGES DURING THIS SHIFT.
[2021-07-30 10:00] LABS: BASOPHILS ABSOLUTE AUTO 0.04 K/mm3 (0.00-0.23); BASOPHILS PERCENT AUTO 1 % (0-2); EOSINOPHILS ABSOLUTE AUTO 0.27 K/mm3 (0.00-0.68); EOSINOPHILS PERCENT AUTO 3 % (0-6); Hematocrit 36.2 % (37.0-53.0); Hemoglobin 12.4 g/dL (13.5-17.5); IMMATURE GRAN ABSOLUTE AUTO 0.26 K/mm3 (0.00-0.10); IMMATURE GRAN PERCENT AUTO 3 % (0-1); LYMPHOCYTES ABSOLUTE AUTO 1.27 K/mm3 (0.84-5.20); LYMPHOCYTES PERCENT AUTO 15 % (21-46); MONOCYTES PERCENT AUTO 9 % (4-13); Mean Corpuscular HGB 30.8 pg (26.0-34.0); Mean Corpuscular HGB Conc 34.3 g/dL (31.5-36.5); Mean Corpuscular Volume 90 fL (80-100); Mean Platelet Volume 9.2 fL (9.1-12.4); NEUTROPHILS ABSOLUTE AUTO 5.86 K/mm3 (1.96-9.15); NEUTROPHILS PERCENT AUTO 69 % (41-73); Platelet Count 339 K/mm3 (150-400); RDW Coefficient Variation 12.9 % (11.7-14.2); RDW Standard Deviation 42.5 fL (35.1-46.3); Red Blood Cell Count 4.03 M/mm3 (4.30-5.90)
[2021-07-30 10:44] LABS: Anion Gap 7 mmol/L (6-16); Blood Urea Nitrogen 20 mg/dL (8-24); Bun/Creatinine Ratio 29.2 (12.0-20.0); CO2, Blood 29 mmol/L (21-32); Calcium, Blood 8.8 mg/dL (8.5-10.1); Chloride, Blood 99 mmol/L (98-108); Creatinine, Blood 0.69 mg/dL (0.60-1.20); Glomerular Filtration Rate >60 (60-); Glucose, Blood 172 mg/dL (70-99); Potassium, Blood 3.6 mmol/L (3.5-5.5); Sodium, Blood 135 mmol/L (136-145)
--- NOTE | 2021-07-30 18:14 | NUR ---
cbg > 350 called , discussed steroids and high blood sugars, she said she would update diabetic treatments, pt has moved from 9L to 2L via high flow nc, continues to destat when moves, recovers quickly and has been offered the opportunity of raising the 02 level to aid recovery or propholacticly if plans move, saline locked, call light in reach, spent the afternoon in his chair, remains afraid of not being able to breathe so it took some doing to gain enough trust to get him to agree to a oxygen reduction, will continue to monitor and treat until share bsr noc nurs
--- NOTE | 2021-07-31 04:32 | NUR ---
SHIFT SUMMARY DURING THIS SHIFT PT O2 INCREASE FROM 7L TO 9L. PTS SATS DROPPED AND MAINTAINED AT 83%. AAOX4.
[2021-07-31 05:25] LABS: BASOPHILS ABSOLUTE AUTO 0.04 K/mm3 (0.00-0.23); BASOPHILS PERCENT AUTO 0 % (0-2); EOSINOPHILS ABSOLUTE AUTO 0.14 K/mm3 (0.00-0.68); EOSINOPHILS PERCENT AUTO 2 % (0-6); Hematocrit 32.9 % (37.0-53.0); Hemoglobin 11.4 g/dL (13.5-17.5); IMMATURE GRAN ABSOLUTE AUTO 0.42 K/mm3 (0.00-0.10); IMMATURE GRAN PERCENT AUTO 5 % (0-1); LYMPHOCYTES PERCENT AUTO 13 % (21-46); MONOCYTES ABSOLUTE AUTO 0.99 K/mm3 (0.16-1.47); MONOCYTES PERCENT AUTO 11 % (4-13); Mean Corpuscular HGB 31.1 pg (26.0-34.0); Mean Corpuscular HGB Conc 34.7 g/dL (31.5-36.5); Mean Corpuscular Volume 90 fL (80-100); Mean Platelet Volume 9.2 fL (9.1-12.4); NEUTROPHILS ABSOLUTE AUTO 6.15 K/mm3 (1.96-9.15); NEUTROPHILS PERCENT AUTO 69 % (41-73); Platelet Count 309 K/mm3 (150-400); RDW Coefficient Variation 12.8 % (11.7-14.2); RDW Standard Deviation 42.2 fL (35.1-46.3); Red Blood Cell Count 3.67 M/mm3 (4.30-5.90); White Blood Cell Count 8.94 K/mm3 (4.00-11.30)
[2021-07-31 05:52] LABS: Alanine Aminotransfer (ALT/SGP 60 U/L (12-78); Albumin, Blood 2.6 g/dL (3.4-5.0); Albumin/Globulin Ratio 0.7 (0.8-1.8); Alk Phos 40 U/L (50-136); Anion Gap 6 mmol/L (6-16); Aspartate Aminotrans (AST/SGOT 14 U/L (12-37); Bilirubin, Total 0.5 mg/dL (0.1-1.0); Blood Urea Nitrogen 17 mg/dL (8-24); Bun/Creatinine Ratio 27.7 (12.0-20.0); CO2, Blood 28 mmol/L (21-32); Calcium, Blood 8.3 mg/dL (8.5-10.1); Chloride, Blood 101 mmol/L (98-108); Creatinine, Blood 0.61 mg/dL (0.60-1.20); Globulin, Blood 3.9 g/dL (2.2-4.0); Glomerular Filtration Rate >60 (60-); Glucose, Blood 195 mg/dL (70-99); Potassium, Blood 3.6 mmol/L (3.5-5.5); Sodium, Blood 135 mmol/L (136-145); Total Protein, Blood 6.5 g/dL (6.4-8.2)
--- NOTE | 2021-07-31 18:43 | NUR ---
a+o, very pleasent and cooperative, challenged today to figure out why drop in stats, currently back down to 2L via nc and stating at 95% but reclining in his chair, drops down when active but not as low as this am, will continue to monitor and treat until share bsr with noc nurse
--- NOTE | 2021-08-01 06:18 | NUR ---
SHIFT SUMMARY A/O, ABLE TO MAKE NEEDS KNOWN. COOPERATIVE WITH CARE. CALLS AND ANSWERS QUESTIONS APPROPRIATELY. NO C/O PAIN/DISCOMFORT. REMAINED ON 7L HF NC T/O NIGHT. DESAT WITH TRANSFER FROM CHAIR TO BED. NO ACUTE NOTED CHANGES OVERNIGHT. APPEARED TO REST MUCH OF THE NIGHT. BED REMAINS IN LOWEST POSITION. CALL LIGHT AND BELONGINGS WTIHIN REACH. CONTINUE WITH CURRENT PLAN OF CARE. REPORT TO ONCOMING RN.
--- NOTE | 2021-08-01 18:48 | NUR ---
The patient is A/OX4 to person, place, time and event. The patient uses urinal and BSD with assistance. He is on 3lpm NC but requires increase to 6lpm during exertion. The patient has been up to his chair this afternoon and gave himself a bed bath. He was educated about using his incentive spirometer and acapella device. The patient is currently resting in his chair watching TV.
[2021-08-02 05:50] LABS: Hemoglobin 12.5 g/dL (13.5-17.5); Mean Corpuscular HGB 31.1 pg (26.0-34.0); Mean Corpuscular HGB Conc 34.7 g/dL (31.5-36.5); Mean Corpuscular Volume 90 fL (80-100); Mean Platelet Volume 9.5 fL (9.1-12.4); NRBC ABSOLUTE 0.02 K/mm3 (0.00-0.02); NRBC Auto 0.2 /100 WBC (0.0-0.2); Platelet Count 318 K/mm3 (150-400); RDW Standard Deviation 42.2 fL (35.1-46.3); Red Blood Cell Count 4.02 M/mm3 (4.30-5.90); White Blood Cell Count 10.87 K/mm3 (4.00-11.30)
[2021-08-02 06:28] LABS: BASOPHILS PERCENT MAN 0 % (0-2); EOSINOPHILS PERCENT MAN 0 % (0-6); LYMPHOCYTES ABSOLUTE MAN 1.73 K/mm3 (0.84-5.20); LYMPHOCYTES PERCENT MAN 16 % (21-46); MONOCYTES ABSOLUTE MAN 0.43 K/mm3 (0.16-1.47); MONOCYTES PERCENT MAN 4 % (4-13); NEUTROPHILS ABSOLUTE MAN 8.69 K/mm3 (1.96-9.15); SEG NEUTROPHILS PERCENT MAN 80 % (41-73); TOTAL CELLS COUNTED 100
[2021-08-02 06:45] LABS: Alanine Aminotransfer (ALT/SGP 68 U/L (12-78); Albumin, Blood 2.7 g/dL (3.4-5.0); Albumin/Globulin Ratio 0.7 (0.8-1.8); Alk Phos 48 U/L (50-136); Anion Gap 9 mmol/L (6-16); Aspartate Aminotrans (AST/SGOT 17 U/L (12-37); Bilirubin, Total 0.5 mg/dL (0.1-1.0); Blood Urea Nitrogen 28 mg/dL (8-24); Bun/Creatinine Ratio 35.2 (12.0-20.0); CO2, Blood 26 mmol/L (21-32); Calcium, Blood 8.7 mg/dL (8.5-10.1); Chloride, Blood 102 mmol/L (98-108); Globulin, Blood 4.1 g/dL (2.2-4.0); Glomerular Filtration Rate >60 (60-); Glucose, Blood 143 mg/dL (70-99); Potassium, Blood 4.2 mmol/L (3.5-5.5); Sodium, Blood 137 mmol/L (136-145); Total Protein, Blood 6.8 g/dL (6.4-8.2)
--- NOTE | 2021-08-02 06:46 | NUR ---
SUMMARY: PT A/OX4, CALLS APPROPRIATELY TO SPECIFY NEEDS AND IS PLEASANT AND COOPERATIVE W/CARE. HE REMAINS ON 3-5L O2 W/RESPS E/U AT REST AND CONT BIOX INTACT BUT DOES STILL DESAT AND BECOME DYSPNEIC UPON EXERTION. PT USES NRB W/ACTIVITY AND SPO2 OBSERVED DROPPING TO 80'S% W/EXERTION. HE REPORTED X1 EPISODE OF SEEING STARS AND NEAR SYNCOPE WHEN UP W/ASSIST TO BS FOR BM. PT RETURNED TO BED SAFELY BUT TOOK APPROX 20 MINS TO FULLY RECOVER AND REGAIN SPO2>90%. PT USES I/S AND FLUTTER AD JOHNSON. NO ACUTE CHANGES, VSS/AFEBRILE. WCTM AND REPORT TO DAY RN.
--- NOTE | 2021-08-02 16:40 | NUR ---
BLOOD SUGAR [address] FREDERICK RE ABOVE FINDINGS. RESUME SAME COVERAGE, NO NEW ORDER.
--- NOTE | 2021-08-02 17:14 | NUR ---
Shift Summary A/Ox4, pleasant and cooperative with care. Worked with PT/OT, desat with these activities to low 70's even with minimal exertion. Had another near syncope episode while working with OT, required NRB to get sats back up to low 90's. Otherwise, patient has been in good spirits. VSS, afebrile. 1p SBA. Urinal at the bedside. Remains on 5L O2 at rest.
--- NOTE | 2021-08-03 04:37 | NUR ---
RECEIVED PATIENT OOB IN CHAIR. HE DENIES ANY DISCOMFORT. O2 5L VIA NC IN PLACE. ON CONTINUOUS PULSE OX SATURATING AT 100%. ASSISTED BACK TO BED AND TOLERATED WELL. NO DYSPNEIC EPISODE. FREQUENT ROUNDS IN PROGRESS.
--- NOTE | 2021-08-03 17:12 | NUR ---
SHIFT SUMMARY: PT ALERT AND ORIENTED ABLE TO MAKE NEEDS KNOWN. USES IS AND FLUTTER VALVE EVERY HOUR WHILE AWAKE STILL REQUIRING 5L O2 NC. TRIED MARCHING IN PLACE WITH A GOAL OF 4 MINUTES OF ACTIVITY BUT PT DESATTED TO 88% AFTER 2 MINUTES.
[2021-08-04 05:43] LABS: BASOPHILS ABSOLUTE AUTO 0.05 K/mm3 (0.00-0.23); BASOPHILS PERCENT AUTO 1 % (0-2); EOSINOPHILS ABSOLUTE AUTO 0.06 K/mm3 (0.00-0.68); EOSINOPHILS PERCENT AUTO 1 % (0-6); Hematocrit 34.3 % (37.0-53.0); Hemoglobin 11.8 g/dL (13.5-17.5); IMMATURE GRAN ABSOLUTE AUTO 0.56 K/mm3 (0.00-0.10); IMMATURE GRAN PERCENT AUTO 5 % (0-1); LYMPHOCYTES ABSOLUTE AUTO 1.57 K/mm3 (0.84-5.20); LYMPHOCYTES PERCENT AUTO 15 % (21-46); MONOCYTES PERCENT AUTO 9 % (4-13); Mean Corpuscular HGB 30.8 pg (26.0-34.0); Mean Corpuscular HGB Conc 34.4 g/dL (31.5-36.5); Mean Corpuscular Volume 90 fL (80-100); NEUTROPHILS ABSOLUTE AUTO 7.61 K/mm3 (1.96-9.15); NEUTROPHILS PERCENT AUTO 70 % (41-73); Platelet Count 303 K/mm3 (150-400); RDW Coefficient Variation 13.2 % (11.7-14.2); RDW Standard Deviation 42.8 fL (35.1-46.3); Red Blood Cell Count 3.83 M/mm3 (4.30-5.90); White Blood Cell Count 10.85 K/mm3 (4.00-11.30)
[2021-08-04 05:56] LABS: Albumin, Blood 2.7 g/dL (3.4-5.0); Anion Gap 6 mmol/L (6-16); Blood Urea Nitrogen 30 mg/dL (8-24); Bun/Creatinine Ratio 34.6 (12.0-20.0); CO2, Blood 28 mmol/L (21-32); Calcium, Blood 8.7 mg/dL (8.5-10.1); Chloride, Blood 102 mmol/L (98-108); Creatinine, Blood 0.87 mg/dL (0.60-1.20); Glomerular Filtration Rate >60 (60-); Glucose, Blood 115 mg/dL (70-99); Magnesium, Blood 2.4 mg/dL (1.6-2.4); Phosphorus, Blood 4.6 mg/dL (2.5-4.9); Potassium, Blood 4.1 mmol/L (3.5-5.5); Sodium, Blood 136 mmol/L (136-145)
--- NOTE | 2021-08-04 06:14 | NUR ---
PT RESTING IN BED AND SLEPT MOST OF THE NIGHT. WHEN GOING FROM CHAIR TO BED PT SATURATION DROPPED TO 74, BUT REBOUNDED WELL ONCE IN BED. PT STATES HE FEELS LIGHTHEADED WHEN TRANSFERING. PT MAKES NO OTHER COMPLAINTS. STAFF WILL CONTINUE TO MONITOR.
--- NOTE | 2021-08-04 08:01 | NUR ---
PT BLOOD GLUCOSE 62 DENIES S/S HYPOGLYCEMIA. GIVEN 4OZ OF APPLE JUICE
--- NOTE | 2021-08-04 15:34 | NUR ---
SHIFT SUMMARY: PT ALERT AND ORIENTED ABLE TO MAKE NEEDS KNOWN. TRANSFERRED FROM BED TO CHAIR TODAY AND WORKED WITH PT 6l nc AND DID BETTER WITH O2 SATS. LOWEST DESAT 88% TOWARDS END OF SESSION PER REPORT FROM PT. LOW BLOOD SUGAR THIS MORNING BUT PATIENT RECOVERED WELL.
[2021-08-05 05:05] LABS: BASOPHILS ABSOLUTE AUTO 0.04 K/mm3 (0.00-0.23); BASOPHILS PERCENT AUTO 0 % (0-2); EOSINOPHILS ABSOLUTE AUTO 0.08 K/mm3 (0.00-0.68); EOSINOPHILS PERCENT AUTO 1 % (0-6); Hematocrit 36.4 % (37.0-53.0); Hemoglobin 12.7 g/dL (13.5-17.5); IMMATURE GRAN ABSOLUTE AUTO 0.45 K/mm3 (0.00-0.10); IMMATURE GRAN PERCENT AUTO 4 % (0-1); LYMPHOCYTES ABSOLUTE AUTO 1.47 K/mm3 (0.84-5.20); LYMPHOCYTES PERCENT AUTO 14 % (21-46); MONOCYTES ABSOLUTE AUTO 0.89 K/mm3 (0.16-1.47); MONOCYTES PERCENT AUTO 8 % (4-13); Mean Corpuscular HGB 31.2 pg (26.0-34.0); Mean Corpuscular HGB Conc 34.9 g/dL (31.5-36.5); Mean Corpuscular Volume 89 fL (80-100); Mean Platelet Volume 8.9 fL (9.1-12.4); NEUTROPHILS ABSOLUTE AUTO 7.88 K/mm3 (1.96-9.15); NEUTROPHILS PERCENT AUTO 73 % (41-73); Platelet Count 288 K/mm3 (150-400); RDW Coefficient Variation 13.2 % (11.7-14.2); RDW Standard Deviation 43.1 fL (35.1-46.3); Red Blood Cell Count 4.07 M/mm3 (4.30-5.90); White Blood Cell Count 10.81 K/mm3 (4.00-11.30)
--- NOTE | 2021-08-05 05:16 | NUR ---
PT RESTING IN BED MAKING NO COMPLAINTS AND SLEEPING MOST OF THE NIGHT. PT DESATS WHEN UP BUT RECOUPS WELL/FAST. PT IS ORIENTED TO HIS OWN ABILITIES AND IS ABLE TO MAKE HIS NEEDS KNOW. NO CHANNGES TO NOTE. STAFF WILL CONTINUE TO MONITOR.
[2021-08-05 05:41] LABS: Alanine Aminotransfer (ALT/SGP 55 U/L (12-78); Albumin, Blood 2.7 g/dL (3.4-5.0); Albumin/Globulin Ratio 0.7 (0.8-1.8); Alk Phos 34 U/L (50-136); Anion Gap 7 mmol/L (6-16); Aspartate Aminotrans (AST/SGOT 12 U/L (12-37); Bilirubin, Total 0.7 mg/dL (0.1-1.0); Blood Urea Nitrogen 26 mg/dL (8-24); Bun/Creatinine Ratio 35.6 (12.0-20.0); C-REACTIVE PROTEIN, EXT RANGE <0.290 mg/dL (0.000-0.300); CO2, Blood 28 mmol/L (21-32); Calcium, Blood 9.1 mg/dL (8.5-10.1); Chloride, Blood 100 mmol/L (98-108); Creatinine, Blood 0.73 mg/dL (0.60-1.20); Globulin, Blood 4.1 g/dL (2.2-4.0); Glomerular Filtration Rate >60 (60-); Glucose, Blood 77 mg/dL (70-99); Magnesium, Blood 2.5 mg/dL (1.6-2.4); Phosphorus, Blood 4.9 mg/dL (2.5-4.9); Potassium, Blood 3.9 mmol/L (3.5-5.5); Sodium, Blood 135 mmol/L (136-145); Total Protein, Blood 6.8 g/dL (6.4-8.2)
[2021-08-05] MEDS ORDERED: Acetaminophen650 M1 PO (11:33)
[2021-08-05] MEDS ORDERED: Ventolin/Prove6.7 GM INH (11:34)
[2021-08-05] MEDS ORDERED: VITAMIN C500 M3 PO (11:35)
[2021-08-05] MEDS ORDERED: DEXA1 PO (11:38)
[2021-08-05] MEDS ORDERED: FURO20 PO (11:43)
[2021-08-05] MEDS ORDERED: GUAI600T33 PO (11:43)
[2021-08-05] MEDS ORDERED: Norco 5-325 Ta1 EACH PO (11:45)
[2021-08-05] MEDS ORDERED: HYDRA25 PO (11:45)
[2021-08-05] MEDS ORDERED: BASAGLAR K100 UNIT/6 SC (11:48)
[2021-08-05] MEDS ORDERED: HUMULIN R100 UNIT/2 IV (11:49)
[2021-08-05] MEDS ORDERED: LOPE2C PO (11:50)
[2021-08-05] MEDS ORDERED: MELATONIN5 M1 PO (11:50)
[2021-08-05] MEDS ORDERED: Lopressor 25 mg25 MG PO (11:52)
[2021-08-05] MEDS ORDERED: ONDA4ODT (11:52)
[2021-08-05] MEDS ORDERED: MIRALAX17 GM PO (11:57)
[2021-08-05] MEDS ORDERED: AKWA Tears15 ML BOTHEYES (11:59)
[2021-08-05] MEDS ORDERED: XARELTO10 M3 PO (12:01)
[2021-08-05] MEDS ORDERED: SERT50 PO (12:01)
[2021-08-05] MEDS ORDERED: VISBIOME 112.51 EACH PO (12:05)
[2021-08-05] MEDS ORDERED: NASAL SPRAY88 ML (12:05)
[2021-08-05] MEDS ORDERED: VITAMIN D31000 UNI1 PO (12:06)
[2021-08-05] MEDS ORDERED: ZINC220 PO (12:06)
[2021-08-05] MEDS ORDERED: ROBITUSSIN DM PO (12:11)
== END 2021-08-05 16:05 | disposition home health service (06) | DRG 871 ==
LOC: ER 16:24 → SURS 18:02 → MEDS 18:02 → ERHOLD 18:02 → MEDS 20:29 → SURS 07-05 08:51 → MEDS 07-05 10:38 → SURS 07-05 10:50 → MEDS 07-23 16:49 → ENPENDDIS 08-05 10:47 → MEDS 08-05 16:05
PROVIDERS: Emergency Medicine; Family Medicine; Internal Medicine; Nurse Practitioner Acute Care; ADMIT Internal Medicine
PROC: 8E0ZXY6 Isolation (ICD-10-PCS; principal; 2021-07-03)
PROC: 3E0333Z Introduction of Anti-inflammatory into Peripheral Vein, Percutaneous Approach (ICD-10-PCS; 2021-07-03)
PROC: XW033E5 Introduction of Remdesivir Anti-infective into Peripheral Vein, Percutaneous Approach, New Technology Group 5 (ICD-10-PCS; 2021-07-03)
PROC: 5A0955A Assistance with Respiratory Ventilation, Greater than 96 Consecutive Hours, High Flow/Velocity Cannula (ICD-10-PCS; 2021-07-03)
DX: A41.89 Other specified sepsis (principal); U07.1 COVID-19; J12.82 Pneumonia due to coronavirus disease 2019; J96.01 Acute respiratory failure with hypoxia; E87.1 Hypo-osmolality and hyponatremia; I10 Essential (primary) hypertension; D69.6 Thrombocytopenia, unspecified; E66.01 Morbid (severe) obesity due to excess calories; Z68.35 Body mass index [BMI] 35.0-35.9, adult; I48.0 Paroxysmal atrial fibrillation; D72.829 Elevated white blood cell count, unspecified; D64.9 Anemia, unspecified; T38.0X5A Adverse effect of glucocorticoids and synthetic analogues, initial encounter; F32.9 Major depressive disorder, single episode, unspecified; E11.9 Type 2 diabetes mellitus without complications; M16.10 Unilateral primary osteoarthritis, unspecified hip; Z88.0 Allergy status to penicillin; Z88.1 Allergy status to other antibiotic agents; Z90.89 Acquired absence of other organs; Z79.899 Other long term (current) drug therapy; Z79.84 Long term (current) use of oral hypoglycemic drugs
CPT/HCPCS: 36415; 71045; 71046; 71260; 80048; 80053; 80069; 82947; 83036; 83605; 83735; 83880; 84100; 84145; 84484; 85025; 85027; 85379; 85610; 86140; 93005; 93010; 94640; 94667; 94762; 96365; 96375; 97110; 97162; 97166; 97530; 97535; 99285-25; A9270; C1751; C8929; J1100; J1650; J1815; J1885; J1940; J2405; J2930; J3010; J7030; Q9957; Q9967

== ENCOUNTER → 2021-10-12 | Outpatient (CLI) | payer BC ==
[~2021-10-12] MED LIST changes: +AKWA Tears15 ML BOTHEYES; +Acetaminophen650 M1 PO; +BASAGLAR K100 UNIT/6 SC; +DEXA1 PO; +FURO20 PO; +GUAI600T33 PO; +HUMULIN R100 UNIT/2 IV; +HYDRA25 PO; +LOPE2C PO; +Lopressor 25 mg25 MG PO; +MELATONIN5 M1 PO; +MIRALAX17 GM PO; +NASAL SPRAY88 ML; +ONDA4ODT; +ROBITUSSIN DM PO; +SERT50 PO; +VISBIOME 112.51 EACH PO; +VITAMIN C500 M3 PO; +VITAMIN D31000 UNI1 PO; +Ventolin/Prove6.7 GM INH; +XARELTO10 M3 PO; +ZINC220 PO
[2021-10-12 13:14] LABS: BASOPHILS ABSOLUTE AUTO 0.07 K/mm3 (0.00-0.23); BASOPHILS PERCENT AUTO 1 % (0-2); EOSINOPHILS ABSOLUTE AUTO 0.22 K/mm3 (0.00-0.68); EOSINOPHILS PERCENT AUTO 3 % (0-6); Hematocrit 37.3 % (37.0-53.0); Hemoglobin 12.4 g/dL (13.5-17.5); IMMATURE GRAN ABSOLUTE AUTO 0.04 K/mm3 (0.00-0.10); IMMATURE GRAN PERCENT AUTO 1 % (0-1); LYMPHOCYTES ABSOLUTE AUTO 0.92 K/mm3 (0.84-5.20); LYMPHOCYTES PERCENT AUTO 14 % (21-46); MONOCYTES ABSOLUTE AUTO 0.57 K/mm3 (0.16-1.47); MONOCYTES PERCENT AUTO 9 % (4-13); Mean Corpuscular HGB 30.9 pg (26.0-34.0); Mean Corpuscular HGB Conc 33.2 g/dL (31.5-36.5); Mean Corpuscular Volume 93 fL (80-100); Mean Platelet Volume 9.5 fL (9.1-12.4); NEUTROPHILS ABSOLUTE AUTO 4.82 K/mm3 (1.96-9.15); NEUTROPHILS PERCENT AUTO 73 % (41-73); Platelet Count 376 K/mm3 (150-400); RDW Coefficient Variation 14.7 % (11.7-14.2); RDW Standard Deviation 50.5 fL (35.1-46.3); Red Blood Cell Count 4.01 M/mm3 (4.30-5.90); White Blood Cell Count 6.64 K/mm3 (4.00-11.30)
[2021-10-12 13:29] LABS: Alanine Aminotransfer (ALT/SGP 39 U/L (12-78); Albumin, Blood 3.7 g/dL (3.4-5.0); Albumin/Globulin Ratio 0.9 (0.8-1.8); Alk Phos 45 U/L (40-126); Anion Gap 13 mmol/L (6-16); Aspartate Aminotrans (AST/SGOT 23 U/L (12-37); Bilirubin, Direct 0.2 mg/dL (0.0-0.3); Bilirubin, Indirect 0.4 mg/dL (0.1-0.7); Bilirubin, Total 0.6 mg/dL (0.1-1.0); Blood Urea Nitrogen 23 mg/dL (8-24); Bun/Creatinine Ratio 25.8 (12.0-20.0); CO2, Blood 25 mmol/L (21-32); Calcium, Blood 9.3 mg/dL (8.5-10.1); Chloride, Blood 102 mmol/L (98-108); Creatinine, Blood 0.89 mg/dL (0.60-1.20); Globulin, Blood 3.9 g/dL (2.2-4.0); Glomerular Filtration Rate >60 (60-); Glucose, Blood 146 mg/dL (70-99); Potassium, Blood 4.3 mmol/L (3.5-5.5); Sodium, Blood 140 mmol/L (136-145); Total Protein, Blood 7.6 g/dL (6.4-8.2)
== END | disposition home or self-care (01) ==
LOC: LAB SHORT 13:05 → LAB 13:05
PROVIDERS: Family Medicine
DX: Z09 Encounter for follow-up examination after completed treatment for conditions other than malignant neoplasm (principal); Z86.16 Personal history of COVID-19
CPT/HCPCS: 80053; 82248; 85025; 85379; 86140

== ENCOUNTER 2021-10-27 23:46 | Emergency (ER) | payer OTHER, BC ==
[~2021-10-27] VITALS: Ht 175.3 cm; Wt 104.3 kg
[~2021-10-27 23:46] MED LIST changes: +MELO7.5 PO; +SYMBICORT 16010.2 GM INH
[2021-10-28 00:11] LABS: BASOPHILS ABSOLUTE AUTO 0.07 K/mm3 (0.00-0.23); BASOPHILS PERCENT AUTO 1 % (0-2); EOSINOPHILS ABSOLUTE AUTO 0.29 K/mm3 (0.00-0.68); EOSINOPHILS PERCENT AUTO 5 % (0-6); Hemoglobin 12.2 g/dL (13.5-17.5); IMMATURE GRAN ABSOLUTE AUTO 0.04 K/mm3 (0.00-0.10); IMMATURE GRAN PERCENT AUTO 1 % (0-1); LYMPHOCYTES ABSOLUTE AUTO 1.15 K/mm3 (0.84-5.20); LYMPHOCYTES PERCENT AUTO 19 % (21-46); MONOCYTES ABSOLUTE AUTO 0.71 K/mm3 (0.16-1.47); MONOCYTES PERCENT AUTO 12 % (4-13); Mean Corpuscular Volume 94 fL (80-100); Mean Platelet Volume 9.4 fL (9.1-12.4); NEUTROPHILS ABSOLUTE AUTO 3.86 K/mm3 (1.96-9.15); NEUTROPHILS PERCENT AUTO 63 % (41-73); Platelet Count 288 K/mm3 (150-400); RDW Standard Deviation 51.9 fL (35.1-46.3); Red Blood Cell Count 3.93 M/mm3 (4.30-5.90); White Blood Cell Count 6.12 K/mm3 (4.00-11.30)
[2021-10-28 01:00] LABS: Alanine Aminotransfer (ALT/SGP 26 U/L (12-78); Albumin, Blood 3.3 g/dL (3.4-5.0); Albumin/Globulin Ratio 0.8 (0.8-1.8); Alk Phos 47 U/L (50-136); Anion Gap 9 mmol/L (6-16); Aspartate Aminotrans (AST/SGOT 19 U/L (12-37); Bilirubin, Total 0.5 mg/dL (0.1-1.0); Blood Urea Nitrogen 21 mg/dL (8-24); CO2, Blood 28 mmol/L (21-32); Chloride, Blood 104 mmol/L (98-108); Creatinine, Blood 0.87 mg/dL (0.60-1.20); Globulin, Blood 4.2 g/dL (2.2-4.0); Glomerular Filtration Rate >60 (60-); Glucose, Blood 110 mg/dL (70-99); Potassium, Blood 4.4 mmol/L (3.5-5.5); Sodium, Blood 141 mmol/L (136-145); Total Protein, Blood 7.5 g/dL (6.4-8.2); Troponin I <0.015 ng/mL (0.000-0.040)
== END 2021-10-28 03:17 | disposition home or self-care (01) ==
LOC: ER 23:46
PROVIDERS: Emergency Medicine
DX: U07.1 COVID-19 (principal); R07.89 Other chest pain; I10 Essential (primary) hypertension; E11.9 Type 2 diabetes mellitus without complications; Z88.0 Allergy status to penicillin; Z88.1 Allergy status to other antibiotic agents; Z79.4 Long term (current) use of insulin; Z79.899 Other long term (current) drug therapy
CPT/HCPCS: 71045; 80053; 83605; 83690; 83880; 84484; 85025; 93005; 93010; 99285-25

== ENCOUNTER 2022-06-05 13:21 | Observation (INO) | payer BC ==
[~2022-06-05] VITALS: Ht 175.3 cm; Wt 104.9 kg
[2022-06-05 13:45] LABS: BASOPHILS ABSOLUTE AUTO 0.07 K/mm3 (0.00-0.23); BASOPHILS PERCENT AUTO 1 % (0-2); EOSINOPHILS ABSOLUTE AUTO 0.09 K/mm3 (0.00-0.68); EOSINOPHILS PERCENT AUTO 1 % (0-6); Hematocrit 39.7 % (37.0-53.0); Hemoglobin 13.5 g/dL (13.5-17.5); IMMATURE GRAN ABSOLUTE AUTO 0.05 K/mm3 (0.00-0.10); IMMATURE GRAN PERCENT AUTO 0 % (0-1); LYMPHOCYTES ABSOLUTE AUTO 0.89 K/mm3 (0.84-5.20); LYMPHOCYTES PERCENT AUTO 8 % (21-46); MONOCYTES PERCENT AUTO 9 % (4-13); Mean Corpuscular HGB 30.9 pg (26.0-34.0); Mean Corpuscular Volume 91 fL (80-100); Mean Platelet Volume 9.4 fL (9.1-12.4); NEUTROPHILS ABSOLUTE AUTO 9.32 K/mm3 (1.96-9.15); NEUTROPHILS PERCENT AUTO 82 % (41-73); Platelet Count 339 K/mm3 (150-400); RDW Coefficient Variation 13.4 % (11.7-14.2); RDW Standard Deviation 45.1 fL (35.1-46.3); Red Blood Cell Count 4.37 M/mm3 (4.30-5.90); White Blood Cell Count 11.42 K/mm3 (4.00-11.30)
[2022-06-05 14:14] LABS: Albumin, Blood 3.5 g/dL (3.4-5.0); Albumin/Globulin Ratio 0.8 (0.8-1.8); Bilirubin, Total 1.1 mg/dL (0.1-1.0); Bun/Creatinine Ratio 23.2 (12.0-20.0); Calcium, Blood 9.3 mg/dL (8.5-10.1); Creatinine, Blood 0.91 mg/dL (0.60-1.20); Globulin, Blood 4.3 g/dL (2.2-4.0); Potassium, Blood 4.3 mmol/L (3.5-5.5); Total Protein, Blood 7.8 g/dL (6.4-8.2)
[2022-06-05] MEDS ORDERED: TRAM50 PO (14:38)
[2022-06-05] MEDS ORDERED: IBUP800 PO (16:50)
[2022-06-05] MEDS ORDERED: ACET325 PO (16:51)
--- NOTE | 2022-06-05 17:41 | NUR ---
ADMIT PT ADMITTED WITH COVID. CURRENTLY SATING IN THE 90S ON RA AT REST. O2 SET UP IN ROOM FOR EXERTION AND PRN USE AT 3L. LS DIM T/O. PT ORIENTED TO ROOM. INDEPENDENT IN ROOM. DR. FREDERICK NOTIFIED OF BLOOD SUGAR OF 342. LISPRO PEN ORDERED FOR COVERAGE. PT DENIES NEEDS AT THIS TIME. RESTING ON SIDE OF BED. CALL LIGHT IN REACH.
[2022-06-06 05:23] LABS: Hematocrit 37.6 % (37.0-53.0); Hemoglobin 12.8 g/dL (13.5-17.5); Mean Corpuscular HGB 31.1 pg (26.0-34.0); Mean Corpuscular Volume 91 fL (80-100); Mean Platelet Volume 9.6 fL (9.1-12.4); Platelet Count 328 K/mm3 (150-400); RDW Coefficient Variation 13.4 % (11.7-14.2); RDW Standard Deviation 45.1 fL (35.1-46.3); Red Blood Cell Count 4.12 M/mm3 (4.30-5.90); White Blood Cell Count 11.94 K/mm3 (4.00-11.30)
[2022-06-06 05:52] LABS: Bun/Creatinine Ratio 23.3 (12.0-20.0); Creatinine, Blood 0.86 mg/dL (0.60-1.20); Potassium, Blood 4.3 mmol/L (3.5-5.5)
[2022-06-06] MEDS ORDERED: DEXA6 PO (11:50)
--- NOTE | 2022-06-06 14:00 | NUR ---
late note. Spiritual care visit conducted. Pt tells me about the challenges he has faced since d/c from the hospital months ago. She also shares about the spiritual/emotional strength that he has gained and come to enjoy. He talks about the struggles ahead and the support he has. I provide therapeutic listening, gentle counseling program leader and prayer. Pt responds well and becomes emotional during the prayer. He states that it was meaningful prayer and conversation.
--- NOTE | 2022-06-06 14:10 | NUR ---
DISCHARGE PT DISCHARGED WITH NO FURTHER QUESTIONS. PT EDUCATED ON NEW MEDS AND FOLLOW UP INSTRUCTIONS PRIOR TO DC. PT SATING IN THE 90S ON RA T/O THE SHIFT. NO CHANGES IN ASSESSMENT PRIOR TO DC. IV REMOVED & INTACT. PT WHEELED OUT BY AIDE AND DRIVEN HOME BY FRIEND.
== END 2022-06-06 14:10 | disposition home or self-care (01) ==
LOC: ER 13:21 → MEDS 13:22
PROVIDERS: Emergency Medicine; Nurse Practitioner Acute Care; ADMIT Internal Medicine
DX: U07.1 COVID-19 (principal); J96.11 Chronic respiratory failure with hypoxia; I10 Essential (primary) hypertension; E11.9 Type 2 diabetes mellitus without complications; J45.909 Unspecified asthma, uncomplicated; F41.9 Anxiety disorder, unspecified; Z88.0 Allergy status to penicillin; Z88.1 Allergy status to other antibiotic agents; Z79.899 Other long term (current) drug therapy
CPT/HCPCS: 71045; 80048; 80053; 82947; 83880; 84484; 85025; 85027; 93005; 93010; 94640; 94664; 94760; 94762; 96372; 99285-25; A9270; G0378; J1650; J1815; J7030

== ENCOUNTER 2022-10-25 00:46 | Observation (INO) | payer BC ==
[~2022-10-25] VITALS: Ht 167.6 cm; Wt 108.6 kg
[~2022-10-25 00:46] MED LIST changes: +ACET325 PO; +DEXA6 PO; +IBUP800 PO; +TRAM50 PO
[2022-10-25 01:05] LABS: BASOPHILS PERCENT AUTO 1 % (0-2); EOSINOPHILS ABSOLUTE AUTO 0.83 K/mm3 (0.00-0.68); EOSINOPHILS PERCENT AUTO 8 % (0-6); Hematocrit 39.2 % (37.0-53.0); Hemoglobin 13.5 g/dL (13.5-17.5); IMMATURE GRAN ABSOLUTE AUTO 0.03 K/mm3 (0.00-0.10); IMMATURE GRAN PERCENT AUTO 0 % (0-1); LYMPHOCYTES PERCENT AUTO 24 % (21-46); MONOCYTES ABSOLUTE AUTO 1.05 K/mm3 (0.16-1.47); MONOCYTES PERCENT AUTO 10 % (4-13); Mean Corpuscular HGB 32.1 pg (26.0-34.0); Mean Corpuscular HGB Conc 34.4 g/dL (31.5-36.5); Mean Corpuscular Volume 93 fL (80-100); Mean Platelet Volume 9.3 fL (9.1-12.4); NEUTROPHILS ABSOLUTE AUTO 5.78 K/mm3 (1.96-9.15); NEUTROPHILS PERCENT AUTO 56 % (41-73); Platelet Count 331 K/mm3 (150-400); RDW Coefficient Variation 13.2 % (11.7-14.2); RDW Standard Deviation 44.7 fL (35.1-46.3); White Blood Cell Count 10.29 K/mm3 (4.00-11.30)
[2022-10-25 01:11] LABS: Base Excess Venous -3.5 mmol/L; Bicarbonate Venous 21.2 mmol/L (24.0-30.0); PCO2 Venous 44.3 mmHg (38-42); pH Blood Venous 7.32 (7.34-7.37)
[2022-10-25 01:27] LABS: Albumin, Blood 3.7 g/dL (3.4-5.0); Albumin/Globulin Ratio 0.9 (0.8-1.8); Bilirubin, Total 0.4 mg/dL (0.1-1.0); Bun/Creatinine Ratio 22.6 (12.0-20.0); Calcium, Blood 9.4 mg/dL (8.5-10.1); Creatinine, Blood 0.97 mg/dL (0.60-1.20); Globulin, Blood 4.2 g/dL (2.2-4.0); Potassium, Blood 3.7 mmol/L (3.5-5.5); Total Protein, Blood 7.9 g/dL (6.4-8.2)
[2022-10-25 02:24] LABS: Influenza A, PCR NEGATIVE (NEGATIVE); Influenza B, PCR NEGATIVE (NEGATIVE); Resp Syncytial Virus, PCR NEGATIVE (NEGATIVE); SARS-Cov-2 (COVID-19) PCR, MMC NEGATIVE (NEGATIVE)
--- NOTE | 2022-10-25 16:39 | NUR ---
ADMIT PT ADMITTED TO FLOOR. ORIENTED TO ROOM. CALL LIGHT IN REACH. SATING IN THE 90S ON RA. DESATS WITH EXERTION. 3L O2 AT BEDSIDE FOR AMBULATION. CONT PULSE OX IN PLACE. PT MEDICATED FOR PAIN AND HTN. PT PLEASANT & COOPERATIVE. UP IN BED TALIKING ON THE PHONE CURRENTLY.
--- NOTE | 2022-10-26 03:44 | NUR ---
EAP SPECIALIST SUMMARY NO ACUTE CHANGES; PT A/OX4; PLEASANT AND COOPERATIVE; ABLE TO MAKE NEEDS KNOWN. PT ON CONT PULSE OX. AT HOME PT IS ON ROOM AIR AND USED O2 NC PRN HE NEEDS IT. 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 PT BECOMES SOB/HYPOXIC W/ACITIVTY. WHILE AWAKE PT HAS HAD FEW EPISODES OF DROPING SATURATIONS INTO 80'S; PT CAN RECOVER BY TAKING DEEP BREATHS. DURING THE NIGHT PT HAS SLEPT W/NC ON 2L 02. PT HAS COMPLAINED OF 6/10 PAIN RELATED T/LEFT HIP FX. PT HAS BEEN TOLD HE IS NOT A CANIDATE F/SURGERY DUE T/LUNG CONDITION. NEW ORDER F/NORCO 5MG Q6 F/MODERATE PAIN. PT HX OF DMT2; CONTROLLED AT HOME WITH ORAL MEDS; PT BEING COVERED W/INSULIN WHILE HERE. HS BS 366. CALLED DR JIANG--NO NEW ORDER FOR ADDITIONAL COVERAGE. CALL LIGHT IN REACH.
[2022-10-26] MEDS ORDERED: Norco 5-325 Ta1 EACH PO (10:45)
[2022-10-26] MEDS ORDERED: HUMALOG KW100 UNIT/1 SQ (10:46)
[2022-10-26] MEDS ORDERED: PRED20 (10:46)
--- NOTE | 2022-10-26 10:48 | NUR ---
Patient is lying in bed and alert. Pt tells me about the events that led to his hospitalization and shows me pictures on his phone of his lung images (not good) and about his quality of life. He also focuses on what he is still able to do and the great support of friends and family that surround his life. He shows no signs of spiritual distress yet is easily encouraged by reflections on God's goodness, and future possibilities and opportunities. I normalize his frustrations of his limitations, reinforce his helpful attitudes and perspectives and provide therapeutic listening, recitation of scripture and prayer. Pt responds well and shows signs of being encouraged in his tex (which includes a mix of Yarsanism and beliefs).
--- NOTE | 2022-10-26 14:35 | NUR ---
PT DISCHARGED AT 1225 VIA WHEELCHAIR WITH FRIEND AND FAMILY TO TRANSPORT. NO DISTRESS NOTED. PT ON 3L NC AND O2 MAINTAINGING MID 90s. PT INDEPENDENT AND AOX4 COOPERATIVE OF CARE. NO DISTRESS NOTED ALL PAPERWORK REVIEWED AND EDUCATIONAL MATERIAL SENT WITH PT.
== END 2022-10-26 12:07 | disposition home or self-care (01) ==
LOC: ER 00:46 → ERHOLD 03:45 → ER 03:45 → ERHOLD 04:52 → MEDS 04:52 → ERHOLD 04:52 → MEDS 15:44
PROVIDERS: Student in an Organized Health Care Education/Training Program; ADMIT Internal Medicine
DX: J96.21 Acute and chronic respiratory failure with hypoxia (principal); I10 Essential (primary) hypertension; E11.9 Type 2 diabetes mellitus without complications; J45.901 Unspecified asthma with (acute) exacerbation; Z88.0 Allergy status to penicillin; Z88.1 Allergy status to other antibiotic agents; Z20.822 Contact with and (suspected) exposure to COVID-19
CPT/HCPCS: 0241U; 71046; 71260; 80053; 82803; 82947; 83036; 83880; 84145; 85025; 90686; 93005; 93010; 94640; 94664; 94762; 96372; 96374; 96375; 96376; 99285-25; A9270; G0008; G0378; J0360; J1650; J1815; J2930; Q9967

== ENCOUNTER 2023-02-01 15:04 | Inpatient (IN) | payer BC ==
[~2023-02-01] VITALS: Ht 175.3 cm; Wt 102.0 kg
[~2023-02-01 15:04] MED LIST changes: +HUMALOG KW100 UNIT/1 SQ; +PRED20
[2023-02-01 15:28] LABS: BASOPHILS ABSOLUTE AUTO 0.07 K/mm3 (0.00-0.23); BASOPHILS PERCENT AUTO 1 % (0-2); EOSINOPHILS ABSOLUTE AUTO 0.32 K/mm3 (0.00-0.68); EOSINOPHILS PERCENT AUTO 3 % (0-6); Hematocrit 42.6 % (37.0-53.0); Hemoglobin 14.1 g/dL (13.5-17.5); IMMATURE GRAN ABSOLUTE AUTO 0.07 K/mm3 (0.00-0.10); IMMATURE GRAN PERCENT AUTO 1 % (0-1); LYMPHOCYTES ABSOLUTE AUTO 0.84 K/mm3 (0.84-5.20); LYMPHOCYTES PERCENT AUTO 7 % (21-46); MONOCYTES ABSOLUTE AUTO 1.14 K/mm3 (0.16-1.47); MONOCYTES PERCENT AUTO 10 % (4-13); Mean Corpuscular HGB 29.9 pg (26.0-34.0); Mean Corpuscular HGB Conc 33.1 g/dL (31.5-36.5); Mean Corpuscular Volume 90 fL (80-100); Mean Platelet Volume 9.5 fL (9.1-12.4); NEUTROPHILS ABSOLUTE AUTO 9.56 K/mm3 (1.96-9.15); NEUTROPHILS PERCENT AUTO 80 % (41-73); Platelet Count 282 K/mm3 (150-400); RDW Coefficient Variation 13.5 % (11.7-14.2); RDW Standard Deviation 45.1 fL (35.1-46.3); Red Blood Cell Count 4.71 M/mm3 (4.30-5.90)
[2023-02-01 15:44] LABS: Albumin, Blood 3.8 g/dL (3.4-5.0); Albumin/Globulin Ratio 0.8 (0.8-1.8); Bilirubin, Total 0.9 mg/dL (0.1-1.0); Bun/Creatinine Ratio 20.6 (12.0-20.0); Creatinine, Blood 0.87 mg/dL (0.60-1.20); Globulin, Blood 4.7 g/dL (2.2-4.0); Potassium, Blood 4.4 mmol/L (3.5-5.5); Total Protein, Blood 8.5 g/dL (6.4-8.2)
[2023-02-01 16:34] LABS: Influenza A, PCR NEGATIVE (NEGATIVE); Influenza B, PCR NEGATIVE (NEGATIVE); Resp Syncytial Virus, PCR NEGATIVE (NEGATIVE); SARS-Cov-2 (COVID-19) PCR, MMC NEGATIVE (NEGATIVE)
--- NOTE | 2023-02-01 22:14 | NUR ---
PATIENT IS A NEW ADMIT FROM THE ED. AXOX 4 AND ARRIVED VIA W/C. INDEPENDENT TO BED. ON ROOM AIR STATING 95% AT REST. REPORTS SOB W/EXERTION. WAS ON 4L O2 NC IN ED AND USES O2 NC PRN AT HOME. DRIED SHINGLES SCABS ON BACK AND BACK OF RIGHT ARM PER PATIENT. DENIES CHEST PAIN AND N/V. ORIENTED TO ROOM AND CALL LIGHT SYSTEM. FOOD PROVIDED PER DIET ORDER. ON PHONE AFTER ASSESSMENT. WCTM.
[2023-02-01 22:36] LABS: Adenovirus Not Detected (NOT DETECT); Bordetella pertussis Not Detected (NOT DETECT); Chlamydophila pneumoniae Not Detected (NOT DETECT); Coronavirus 229E Not Detected (NOT DETECT); Coronavirus HKU1 Not Detected (NOT DETECT); Coronavirus NL63 Not Detected (NOT DETECT); Coronavirus OC43 Not Detected (NOT DETECT); Human Metapneumovirus Not Detected (NOT DETECT); Human Rhinovirus/Enterovirus Not Detected (NOT DETECT); Influenza A/2009-H1 Not Detected (NOT DETECT); Influenza A/H1 Not Detected (NOT DETECT); Influenza A/H3 Not Detected (NOT DETECT); Influenza B Not Detected (NOT DETECT); Mycoplasma pneumoniae Not Detected (NOT DETECT); Parainfluenza Virus 1 Not Detected (NOT DETECT); Parainfluenza Virus 2 Not Detected (NOT DETECT); Parainfluenza Virus 3 Not Detected (NOT DETECT); Parainfluenza Virus 4 Not Detected (NOT DETECT); Respiratory Syncytial Virus Not Detected (NOT DETECT); SARS-Cov-2 (COVID-19), BioFire Not Detected (NOT DETECT)
--- NOTE | 2023-02-02 04:17 | NUR ---
SHIFT SUMMARY PATIENT HAD NO ACUTE CHANGES. AXOX 4 AND INDEPENDENT IN ROOM. SOB W/EXERTION. ON ROOM AIR AND O2 2L PRN. PIV REMAINS INTACT. IV SOLU-MEDROL SCHEDULED. TELE MONITOR NSR 78. VSS/AFEBRILE. DENIES CHEST PAIN AND N/V. REPORTED CHEST/BACK PAIN FROM COUGHING. NORCO 5/325 MG GIVEN PER EMAR. RESTED IN BED AND ON PHONE AT TIMES. CALL LIGHT IN REACH. BED IN LOWEST POSITION. WILL CONTINUE TO MONITOR UNTIL DAY SHIFT NURSE ASSUMES CARE.
--- NOTE | 2023-02-02 10:39 | NUR ---
CALLED DR GARRISON- PT HAS EPISODES KAILYN SOOB WITH EXERTION, HE OFTEN KNOWS WHAT HIS SATS ARE, BUT HIS WWOORK OF BREATHING INCREASES ANND THEN SATS DROP WHEN THE PT STARTS TO HAVE THE BRONCOSPASAMS. RECIEVED AN ORDER FOR CONT BIOX TO MONITOR SATS. PPT HAS A NEW OORDER FOR AC/HS INSULIN RECIEVED A VERBAL ORDER FOR POC BG AC/HS.
--- NOTE | 2023-02-02 12:30 | NUR ---
CALLED DR HANSON- [facility] LUNCH BG WAS 390. HE IS SCHEDULED FOR LOW CS HUMALOG. WELL MORE IV STEROIDS. NO NEW ORDERS AT THIS TIME DR LARRY.
--- NOTE | 2023-02-02 17:30 | NUR ---
CALLED DR GARRISON- PT BG 450. LUNCH BG WAS 390 AND HE RECIEVED LOW CS, 5 UNITS. PT HAS MORE IV STEROIDS ORDERED AT THIS TIME WELL. RECIEVED AN ORDER TO CHANGE FROM LOW CS TO HIGH CS. PT RECIEVED 15 UNITS OF COVERAGE FFOOR HIS HIGH BG. HE ATE HIS DINNER AND RECIEVED IV STEROIDS. PT INSULIN IS ORDERED AC/HS. NEXT CHECK WILL BE AROUND 2100.
--- NOTE | 2023-02-02 19:06 | NUR ---
SHIFT SUMMARY- PT ALERT, ORIENTED AND INDEPEDNENT IN THE ROOM. PT HAS HAD HIGH BBG READINGS, MD AWARE. CHANGED TO HIGH CS BEFORE DINNER DOSE. PT IS ON BREATHING Tx AND IV STEROIDS TO HELP HIS BREATHING. PT ON TELE RUNNING NSR WITH PAC'S ON 2L O2 VIA NC AND CONT BIOX. PT CURRENTLY SITTING UP IN BED, CALL LIGHT IN REACH NO S&S OF DISTRESS RUNNING A BREATHING Tx AT THIS TIME. WILL CTM AND PASS ON TO NIGHT RN IN BEDSIDE REPORT.
--- NOTE | 2023-02-03 04:51 | NUR ---
SHIFT SUMMARY 57 YR M ADMITTED ON 02/01/23 FOR ACUTE ON CHRONIC RESPIRATORY FAILURE. FULL CODE. NO ACUTE CHANGES THIS SHIFT. PT IS CURRENTLY ON 2 L O2 BUT DOES NOT WEAR IT CONSISTANTLY. HE STATES HE CAN TELL WHEN HIS O2 IS LOW AND WILL USE THE OXYGEN THEN. HE IS INDEPENDANT IN THE ROOM AND IS COOPERATIVE WITH CARE. HE IS A VERY PLEASANT MAN. 2000 CBS WAS 397 AND HE WAS GIVEN 6 UNITS OF HUMALOG PER HIGH SLIDING SCALE. C/O LEFT HIP PAIN AND MEDICATED ONCE THIS SHIFT PER EMAR.
[2023-02-03 06:13] LABS: Hematocrit 39.1 % (37.0-53.0); Hemoglobin 13.2 g/dL (13.5-17.5); Mean Corpuscular HGB Conc 33.8 g/dL (31.5-36.5); Mean Corpuscular Volume 89 fL (80-100); Mean Platelet Volume 10.1 fL (9.1-12.4); Platelet Count 301 K/mm3 (150-400); RDW Coefficient Variation 13.1 % (11.7-14.2); RDW Standard Deviation 42.8 fL (35.1-46.3)
[2023-02-03 06:35] LABS: BAND PERCENT MAN 1 % (0-8); BASOPHILS PERCENT MAN 0 % (0-2); EOSINOPHILS PERCENT MAN 0 % (0-6); LYMPHOCYTES % ATYPICAL MANUAL 1 % (0-0); LYMPHOCYTES ABSOLUTE MAN 0.97 K/mm3 (0.84-5.20); LYMPHOCYTES PERCENT MAN 4 % (21-46); MONOCYTES ABSOLUTE MAN 0.39 K/mm3 (0.16-1.47); MONOCYTES PERCENT MAN 2 % (4-13); MYELOCYTE ABSOLUTE MAN 0.19 K/mm3 (0.00-0.00); MYELOCYTE PERCENT MAN 1 % (0-0); NEUTROPHILS ABSOLUTE MAN 17.94 K/mm3 (1.96-9.15); SEG NEUTROPHILS PERCENT MAN 91 % (41-73); TOTAL CELLS COUNTED 100
[2023-02-03 06:50] LABS: Calcium, Blood 9.2 mg/dL (8.5-10.1); Creatinine, Blood 0.82 mg/dL (0.60-1.20)
--- NOTE | 2023-02-03 19:19 | NUR ---
SHIFT SUMMARY: PT A&O X4, PLEASANT, COOPERATIVE, ABLE TO VOIVE NEEDS AND COMMUNICATES WITH STAFF. PT HAD MODERATE PAIN RELATED TO RIGHT HIP PAIN, PT RECEVIED NORCO 5-325 PO Q6HR. PT ABLE TO SHOWER WITH SET UP ONLY AND AMBULATES IN ROOM INDEPENDANTLY. PT HAD ELVATED 391 CBG FOR LUNCH, DR. HAYWARD CONTACTED 15 UNITS GIVEN NO ADDITONAL ORDERS OF INSULIN PLACED RECHECK IN 2 HR 313 CBG. PT HAD ANOTHER ELEVATED 452 CBG FOR DINNER, DR. HAYWARD CONTACTED 15 UNITS GIVEN AND ADDITIONAL ORDER OF [address] HAYWARD VERBALIZED A RECHECK IN 2HRS. PT STABLE AND NO S/S OF HYPERGLYCEMIA. PT HAD FAMILY AT BEDSIDE THROUGHOUT THE SHIFT. PT IN BED WITH CALL LIGHT WITHIN REACH.
--- NOTE | 2023-02-04 04:09 | NUR ---
SHIFT SUMMARY 57 YR M ADMITTED ON 02/01/23 FOR ARF W/ HYPOXIA. FULL CODE. NO ACUTE CHANGES THIS SHIFT 2014 BS WAS 460 AND 6 UNITS OF HUMALOG WAS GIVEN. NO SNACKS WERE GIVEN THIS SHIFT. PT C/O HEADACHE AT A PAIN LEVEL OF 3 AND WAS GIVEN TYLENOL PER EMAR. HE IS VERY PLEASANT AND COOPERATIVE WITH CARE. HE IS INDEPENDANT IN THE ROOM AND IS ABLE TO MAKE HIS NEEDS KNOWN. HE STATES HE IS BREATHING BETTER AND IS USING THE OXYGEN LESS.
[2023-02-04 04:32] LABS: Hematocrit 37.8 % (37.0-53.0); Mean Corpuscular HGB 30.6 pg (26.0-34.0); Mean Corpuscular HGB Conc 34.4 g/dL (31.5-36.5); Mean Corpuscular Volume 89 fL (80-100); Mean Platelet Volume 10.3 fL (9.1-12.4); NRBC ABSOLUTE 0.02 K/mm3 (0.00-0.02); NRBC Auto 0.1 /100 WBC (0.0-0.2); Platelet Count 355 K/mm3 (150-400); RDW Coefficient Variation 13.2 % (11.7-14.2); RDW Standard Deviation 42.9 fL (35.1-46.3); Red Blood Cell Count 4.25 M/mm3 (4.30-5.90); White Blood Cell Count 29.87 K/mm3 (4.00-11.30)
[2023-02-04 04:49] LABS: Bun/Creatinine Ratio 46.9 (12.0-20.0); Calcium, Blood 8.7 mg/dL (8.5-10.1); Creatinine, Blood 0.77 mg/dL (0.60-1.20); Potassium, Blood 4.2 mmol/L (3.5-5.5)
[2023-02-04 04:53] LABS: BAND PERCENT MAN 1 % (0-8); BASOPHILS PERCENT MAN 0 % (0-2); EOSINOPHILS PERCENT MAN 0 % (0-6); LYMPHOCYTES ABSOLUTE MAN 1.79 K/mm3 (0.84-5.20); LYMPHOCYTES PERCENT MAN 6 % (21-46); METAMYELOCYTE ABSOLUTE MAN 0.29 K/mm3 (0.00-0.00); METAMYELOCYTE PERCENT MAN 1 % (0-0); MONOCYTES ABSOLUTE MAN 2.98 K/mm3 (0.16-1.47); MONOCYTES PERCENT MAN 10 % (4-13); NEUTROPHILS ABSOLUTE MAN 24.79 K/mm3 (1.96-9.15); SEG NEUTROPHILS PERCENT MAN 82 % (41-73); TOTAL CELLS COUNTED 100
--- NOTE | 2023-02-04 17:07 | NUR ---
CALLED DR. PEREZ AND UPDATED HER ON PT'S CONDITION. PT HAD AMBULATED TO BATHROOM W/O OXYGEN AND HR WAS IN THE 140-150'S (CALL FROM TELE). PT VOMITTED AND WAS SOB. VITALS TAKEN. REPORTED TO ANA. ELEVATED BP AND NNEL=053.0. MEDS GIVEN. NO NEW ORDERS.
[2023-02-05 05:48] LABS: Hematocrit 45.4 % (37.0-53.0); Hemoglobin 15.4 g/dL (13.5-17.5); Mean Corpuscular HGB 30.2 pg (26.0-34.0); Mean Corpuscular HGB Conc 33.9 g/dL (31.5-36.5); Mean Corpuscular Volume 89 fL (80-100); Mean Platelet Volume 9.8 fL (9.1-12.4); NRBC ABSOLUTE 0.61 K/mm3 (0.00-0.02); NRBC Auto 1.4 /100 WBC (0.0-0.2); Platelet Count 311 K/mm3 (150-400); RDW Coefficient Variation 13.5 % (11.7-14.2); RDW Standard Deviation 44.2 fL (35.1-46.3); White Blood Cell Count 43.16 K/mm3 (4.00-11.30)
[2023-02-05 06:11] LABS: BAND PERCENT MAN 10 % (0-8); BASOPHILS PERCENT MAN 0 % (0-2); EOSINOPHILS PERCENT MAN 0 % (0-6); LYMPHOCYTES ABSOLUTE MAN 4.31 K/mm3 (0.84-5.20); LYMPHOCYTES PERCENT MAN 10 % (21-46); METAMYELOCYTE ABSOLUTE MAN 0.43 K/mm3 (0.00-0.00); METAMYELOCYTE PERCENT MAN 1 % (0-0); MONOCYTES ABSOLUTE MAN 4.74 K/mm3 (0.16-1.47); MONOCYTES PERCENT MAN 11 % (4-13); MYELOCYTE ABSOLUTE MAN 0.86 K/mm3 (0.00-0.00); MYELOCYTE PERCENT MAN 2 % (0-0); SEG NEUTROPHILS PERCENT MAN 66 % (41-73); TOTAL CELLS COUNTED 100
[2023-02-05 06:15] LABS: Bun/Creatinine Ratio 46.7 (12.0-20.0); Calcium, Blood 8.7 mg/dL (8.5-10.1); Creatinine, Blood 0.9 mg/dL (0.60-1.20); Potassium, Blood 4.7 mmol/L (3.5-5.5)
--- NOTE | 2023-02-05 06:25 | NUR ---
AIR CONDITIONING MANAGER SUMMARY PT A/OX4. ABLE TO MAKE NEEDS KNOWN. PLEASANT AND COOPERATIVE. PT HERE FOR ACUTE RESP FAILURE. PT ON 2.5L O2 NC. PT C/O GENERALIZED NOT FEELING WELL AND A PERSISTANT HEADACHE. APROX 0400 PT BECAME NAUSEOUS WITH EPISODES OF VOMITTING. VITALS SHOWED ELVATED BP IN 180'S. GAVE PT ZOFRAN AND CALLED PAYER SPECIALIST/DR JIANG. NEW ORDER FOR 10MG IV HYDRALAZINE Q6 FOR SBP >160. ADMIN BP MED WITH LITTLE EFFECT. N&V CONTINUED; NEW ORDER FOR 25MG IV PHENERGAN Q8 PRN. ADMIN MED. PT N&V SUBSIDED AND WAS ABLE TO REST. NOTED THIS AM LABS WBC 43.16 UP FROM 29.84
[2023-02-05 11:46] LABS: Magnesium, Blood 3.4 mg/dL (1.6-2.4); Thyroid Stimulating Hormone 0.394 uIU/mL (0.360-4.800)
[2023-02-05 12:00] LABS: PCO2 Arterial 29.4 mmHg (35-45); PO2 Arterial 113 mmHg (80-100)
[2023-02-05 12:01] LABS: Source, Urine Foley catheter
[2023-02-05 12:05] LABS: Appearance, Urine Hazy (Clear); Bilirubin, Urine Neg (Neg); Blood, Urine 4+ (Neg); Color, Urine Yellow (P-Yellow); Glucose Qualitative, Urine 4+ (Neg); Ketones, Urine Neg (Neg); Leukocyte Esterase, Urine Neg (Neg); Nitrite, Urine Neg (Neg); Protein, Urine 4+ (Neg); Urobilinogen, Urine NORM (Normal)
[2023-02-05 12:10] LABS: Albumin, Blood 2.6 g/dL (3.4-5.0); Albumin/Globulin Ratio 0.5 (0.8-1.8); Bilirubin, Total 1.4 mg/dL (0.1-1.0); Bun/Creatinine Ratio 36.6 (12.0-20.0); Creatinine, Blood 1.34 mg/dL (0.60-1.20); Globulin, Blood 5.2 g/dL (2.2-4.0); Potassium, Blood 3.8 mmol/L (3.5-5.5); Total Protein, Blood 7.8 g/dL (6.4-8.2)
[2023-02-05 12:21] LABS: Calcium, Blood 11.1 mg/dL (8.5-10.1)
[2023-02-05 13:04] LABS: Bacteria Not Seen /hpf; Hyaline Casts 0-2 /lpf (0-2); Squamous Epithelial Cells Rare /hpf (Few); White Blood Cells, Urine Not Seen /hpf (0-5)
--- NOTE | 2023-02-05 13:59 | NUR ---
PT RESTING HF DURING SHIFT REPORT. PER NOC SHIFT RN, PT HAVING N/V EARLIER. ZOFRAN GIVEN AT 0400 W/O MUCH EFFECT. PHENERGAN ORDERED AND GIVEN, BUT PT STILL VOMITING AT START OF SHIFT. HR INCREASING AND BP ELEVATED FURTHER, EVEN AFTER IV HYDRALAZINE. PT BECOMING MORE RESTLESS, GETTING UP TO EOB AND LAYING BACK DOWN CONSTANTLY. DR HANSON NOTIFIED OF PT STATUS AND CONTINUED INCREASE IN VS; DR HANSON IMMEDIATELY TO TO SEE PT. NIFEDIPINE GIVEN EARLY AND VS CK'D AFTER 40 MINS; DR HANSON NOTIFIED WITH RESULTS, REQUESTED. SOME IMPROVEMENT IN BP, BUT HR CONTINUED TO INCREASE WITH NAUSEA. DR CAUSEY TO TO SEE PT; V/O TO GIVE ADDITIONAL PHENERGAN FOR N/V. DR GARRISON TO TO SEE PT AND ATTEMPTING TO CALM PT AND GET HIM TO BREATHE MORE EFFECTIVELY. ATIVAN GIVEN PER EMAR. PT CALMED AND RESTED ABOUT 20 MINS, BEFORE BECOMING AGITATED AND RESTLESS AGAIN. PT VERY WEAK, UNSTEADY, AND UNABLE TO BEAR WT. PT PULLING AT LINES, TUBING, AND TEARING OFF TELE MX. SUPERVISOR SEWING DEPARTMENT AND CHRG RN ATTEMPTING TO REPOSITION PT AND GETTING PILLOWS BEHIND BACK TO SIT UPRIGHT FOR BREATHING. PT SUDDENLY STOPPED BREATHING. CODE BLUE CALLED IMMEDIATELY; SEE CODE DOCUMENTATION. PT TAKEN TO ICU 9.
--- NOTE | 2023-02-05 14:00 | NUR ---
Pal Care note/summary of events t/o the day. Responded to code blue this am on medical floor. I made phone contact with two listed NOK on pt's face sheet. Those two individuals assisted in contacting additional family and friends to update on pt's change in status and critical event. Team consisting of Pal care, Quotation Clerk, nursing, Drs & others supported pt's friends, children, SO & previous coworkers t/o the day. My time was primarily spent as the support person to Pt's 12 yr old daughter and other family members as they arrived, including after pt's demise.
--- NOTE | 2023-02-05 15:04 | NUR ---
Spiritual care visit conducted. Several visits today. Gilbert Moscoso is called on patient and so I respond and provide prayer for the patient at the request of his friend, Rebecca, who is on his face sheet and notified of the CPR in progress by phone call by PAlliative Care RN Emeli Marcial. I then spend time with family and friends through more codes and more prayers and emotional support given. Finaly Patient's ex- JS Sainz and a friend DR. Martínez, decide that enough futile medical efforts have been given and allow patient to peacefully. Prayer, blessing and grief support is provided. A walk of reverence is set up for employees to honor the patient for his many years of service and many lives touched. I will continue to remain available to patient and family.
--- NOTE | 2023-02-05 15:08 | NUR ---
PT ARRIVES FROM FLOOR AT 1130 AFTER HAVING [facility] FOLLOWING CODE BLUE RESUSCITA- TION. PT IS UNRESPONSIVE, HE IS UNABLE TO FOLLOW COMMANDS, IV DOPAMINE INFUSING, SWITCHED TO IV LEVOPHED. PT BEGAN DETERIORATING AGAIN AND A CODE BLUE WAS CALLED WITH [facility]. ART LINE PLACED, ADDITIONAL PIV IN PLACE, PLACED DURING CODE, PT AGAIN LOST HIS PULSES AND CODE BLUE WAS CALLED. FAMILY WAS ABLE TO COME AND SPOKE WITH DOCTORS AND PUBLISHER ASSISTANT'S, DECIDING TO NOT FURTHER ESCALATE CARE. PT'S FLUID BOLUS CONTINUED, LEVO CONTINUED, AMIODARONE HAD BEEN STARTED AND WAS CONTINUED. NO SEDATION, PT NOT RESPONSIVE, FAMILY BROUGHT TO BEDSIDE, PT ALLOWED NATURAL WHILE FAMILY SITTING NEXT TO HIM. SEE CODE SHEETS FOR DETAILS OF THE CODES. FAMILY ALLOWED TIME TO BE WITH PATIENT. [facility]. ARRANGEMENTS MADE FOR HONOR WALK.
== END 2023-02-05 15:30 | DRG 208 ==
LOC: ER 15:04 → MEDS 19:38 → ICUW 02-05 11:30
PROVIDERS: Emergency Medicine; Family Medicine; Hospitalist; Student in an Organized Health Care Education/Training Program; ADMIT Internal Medicine
PROC: 5A12012 Performance of Cardiac Output, Single, Manual (ICD-10-PCS; principal; 2023-02-01)
PROC: 4A033R1 Measurement of Arterial Saturation, Peripheral, Percutaneous Approach (ICD-10-PCS; 2023-02-05)
PROC: 04HY32Z Insertion of Monitoring Device into Lower Artery, Percutaneous Approach (ICD-10-PCS; 2023-02-05)
PROC: 4A133B1 Monitoring of Arterial Pressure, Peripheral, Percutaneous Approach (ICD-10-PCS; 2023-02-05)
PROC: 4A133J1 Monitoring of Arterial Pulse, Peripheral, Percutaneous Approach (ICD-10-PCS; 2023-02-05)
PROC: B44LZZZ Ultrasonography of Femoral Artery (ICD-10-PCS; 2023-02-05)
PROC: 3E033XZ Introduction of Vasopressor into Peripheral Vein, Percutaneous Approach (ICD-10-PCS; 2023-02-05)
PROC: 5A2204Z Restoration of Cardiac Rhythm, Single (ICD-10-PCS; 2023-02-05)
PROC: 5A1935Z Respiratory Ventilation, Less than 24 Consecutive Hours (ICD-10-PCS; 2023-02-05)
PROC: 0BH17EZ Insertion of Endotracheal Airway into Trachea, Via Natural or Artificial Opening (ICD-10-PCS; 2023-02-05)
PROC: 0D9670Z Drainage of Stomach with Drainage Device, Via Natural or Artificial Opening (ICD-10-PCS; 2023-02-05)
DX: J96.21 Acute and chronic respiratory failure with hypoxia (principal); J84.9 Interstitial pulmonary disease, unspecified; J44.1 Chronic obstructive pulmonary disease with (acute) exacerbation; I47.20 Ventricular tachycardia, unspecified; R57.9 Shock, unspecified; I10 Essential (primary) hypertension; Z66 Do not resuscitate; Z51.5 Encounter for palliative care; G89.29 Other chronic pain; M25.552 Pain in left hip; E11.9 Type 2 diabetes mellitus without complications; I46.8 Cardiac arrest due to other underlying condition; J98.01 Acute bronchospasm; I16.0 Hypertensive urgency; F41.9 Anxiety disorder, unspecified; I49.3 Ventricular premature depolarization; I48.91 Unspecified atrial fibrillation; Z20.822 Contact with and (suspected) exposure to COVID-19; Z88.0 Allergy status to penicillin; Z88.1 Allergy status to other antibiotic agents; Z98.890 Other specified postprocedural states; Z79.899 Other long term (current) drug therapy; Z86.16 Personal history of COVID-19; Z79.51 Long term (current) use of inhaled steroids; Z79.891 Long term (current) use of opiate analgesic; Z79.4 Long term (current) use of insulin; Z79.52 Long term (current) use of systemic steroids; Z87.01 Personal history of pneumonia (recurrent)
CPT/HCPCS: 0202U; 0241U; 31500; 36415; 36600; 36620; 51702; 71045; 71046; 80048; 80053; 81001; 82435; 82803; 82947; 83735; 83880; 84100; 84132; 84295; 84443; 84484; 85025; 93005; 93010; 93308; 93321; 94002; 94640; 94664; 94760; 94762; 96374; 99285-25; A9270; J0282; J0360; J1265; J1650; J1815; J2060; J2370; J2405; J2550; J2704; J2930; J7030; J7040; J7120